=== PATIENT | male | born 1955 | race Caucasian/White ===

== ENCOUNTER 2019-12-01 04:54 | Inpatient (IN) | payer MEDICARE, SELFPAY, OTHER ==
[2019-12-01] VITALS (28 sets, daily range): BP systolic 77–143
[~2019-12-01] VITALS: Ht 172.7 cm; Wt 72.6 kg
--- NOTE | 2019-12-01 05:00 | NUR ---
Placed in room 6 . Placed on teletypesetter monitor, blood pressure machine and pulse oximeter. To gown for exam. Side rails up. Report given to JAGJIT DOMÍNGUEZ.
--- NOTE | 2019-12-01 05:01 | NUR ---
ER at bedside examining patient.
--- NOTE | 2019-12-01 05:02 | NUR ---
Patient brought to ED via ambulance ALS by squad 64 from home for report of SOB that began early this AM. Patient was recently diagnosed with PNA and discharged from [facility] on 11/21/19. Per report, Ativan 1 mg PO given at home from palliative nurse for patient agitation. On arrival to ED, patient was non-responsive and O2 sat 90% on 15L non-rebreather. CARMENCITA patient's mentation. Placed on electronic prepress technician, blood pressure machine and pulse oximeter.
--- NOTE | 2019-12-01 05:05 | NUR ---
MD Andujar and RT at bedside for patient evaluation and need for intubation.
--- NOTE | 2019-12-01 05:10 | NUR ---
Verbal order received from MD Andujar to administer Etomidate 20mg via IO.
--- NOTE | 2019-12-01 05:10 | NUR ---
15G 25mm IO placed to right lower leg.
--- NOTE | 2019-12-01 05:12 | NUR ---
Received verbal order to administer Succinylcholine 100mg via IO.
--- NOTE | 2019-12-01 05:13 | NUR ---
Vent settings: AC 14, VT 550, peep 5.
--- NOTE | 2019-12-01 05:13 | NUR ---
Patient intubated and placed on mechanical ventilator.
--- NOTE | 2019-12-01 05:14 | NUR ---
0.9 NS 1L started at this time.
--- NOTE | 2019-12-01 05:20 | NUR ---
O2 sat 98-100% at this time.
--- NOTE | 2019-12-01 05:30 | NUR ---
BP 73/31, HR 102, O2 sat 99%, Resp 14.
--- NOTE | 2019-12-01 05:35 | NUR ---
BP 61/35, HR 102, resp 14, O2 sat 98%.
--- NOTE | 2019-12-01 05:38 | NUR ---
Triple lumen central line placed by MD Andujar to right groin.
--- NOTE | 2019-12-01 05:40 | NUR ---
Levophed drip started at 2mcg/min. BP 86/53 (map 64), HR 100, resp 19.
[2019-12-01] MEDS ORDERED: NOREPINEPHRINE 4 MG/4 ML VIAL IV ONE ×3 (05:47→16:55)
--- NOTE | 2019-12-01 05:48 | NUR ---
BP 84/41 (map 62), HR 100.
--- NOTE | 2019-12-01 05:59 | NUR ---
BP 93/57 (map 71), HR 100. Patient currently on Levophed 4mcg/min.
[2019-12-01] MEDS ORDERED: NACL 0.9% 1,000 ML IV ONE (06:00)
[2019-12-01] MEDS ORDERED: PROPOFOL DRIP 100 ML IV ONE ×2 (06:00→06:16)
[2019-12-01] MEDS ORDERED: NOREPINEPHRINE BITARTRATE 4 MG in NS 246 ML IV ONE (06:00)
--- NOTE | 2019-12-01 06:07 | NUR ---
BP 96/65 (map 77), HR 102.
--- NOTE | 2019-12-01 06:10 | NUR ---
# 16 FR, 10ml ng catheter placed with use of sterile technique. Immediate return of 30 cc cathleen colored urine noted. Bedside drainage bag placed below level of bladder. Urine sample collected and sent to lab.
[2019-12-01] MEDS ORDERED: SPIRIVA INH (06:15)
[2019-12-01] MEDS ORDERED: POSA100T PO (06:15)
[2019-12-01] MEDS ORDERED: PRO40 PO (06:15)
[2019-12-01] MEDS ORDERED: [UNRECOGNIZED DRUG - CODE] PO (06:15)
[2019-12-01] MEDS ORDERED: ALBU2.5V7 INH (06:15)
[2019-12-01] MEDS ORDERED: MAGN400T10 PO (06:15)
[2019-12-01] MEDS ORDERED: SILD20TA PO (06:15)
[2019-12-01] MEDS ORDERED: LORA10TA7 PO (06:15)
[2019-12-01] MEDS ORDERED: MIRT15TA7 PO (06:15)
[2019-12-01] MEDS ORDERED: TROS20TA2 PO (06:15)
[2019-12-01] MEDS ORDERED: FLUT16SP16 NS (06:15)
[2019-12-01] MEDS ORDERED: CLAR500T PO (06:15)
--- NOTE | 2019-12-01 06:15 | NUR ---
Patient "bucking the vent", started on Propofol 5mcg/min.
--- NOTE | 2019-12-01 06:16 | NUR ---
Medication reconciliation completed with information provided by . Any prior medication reconciliation on file was reviewed and corrected.
--- NOTE | 2019-12-01 06:20 | NUR ---
Levophed increased to 6mcg/min and Propofol increased to 5mcg/min.
--- NOTE | 2019-12-01 06:20 | NUR ---
BP 71/43 (map 57), HR 98%, 02 sat 100%. RT at bedside for suction and ABG.
--- NOTE | 2019-12-01 06:30 | NUR ---
BP 96/58 (map 61), HR 97, O2 sat 100%.
--- NOTE | 2019-12-01 06:40 | NUR ---
0640 CHANGED VENT SETTINGS TO AC16, FIO2 50% PER JANOO.
[2019-12-01 06:42] LABS: BILIRUBIN,URINE 2+ (NEGATIVE); BLOOD, URINE 2+ (NEGATIVE); CLARITY/URINE TURBID (CLEAR); COLOR,URINE YELLOW (YELLOW); GLUCOSE,URINE TRACE (NEGATIVE); KETONES,URINE TRACE (NEGATIVE); LEUKOCYTE ESTERASE ,URINE NEGATIVE (NEGATIVE); NITRITE, URINE POSITIVE (NEGATIVE); PROTEIN URINE 1+ (NEGATIVE)
[2019-12-01 06:43] LABS: BASOPHILS # (AUTO) 0.1 K/uL (0.0-0.2); BASOPHILS % (AUTO) 2.1 % (0.0-2.0); EOSINOPHILS % (AUTO) 0.4 % (0.0-4.0); HEMATOCRIT 28.3 % (36-54); HEMOGLOBIN 9.4 g/dL (14.0-18.0); LYMPHOCYTES # (AUTO) 0.1 K/uL (1.0-5.5); LYMPHOCYTES % (AUTO) 2.1 % (20.5-51.5); MEAN CORPUSCULAR HEMOGLOBIN 34 pg (27-31); MEAN CORPUSCULAR HGB CONC 33 % (32-36); MEAN CORPUSCULAR VOLUME 101 fL (79.0-98.0); MONOCYTES # (AUTO) 0.4 K/uL (0.0-1.0); MONOCYTES % (AUTO) 8.5 % (1.7-9.3); NEUTROPHILS # (AUTO) 4.2 K/uL (1.8-7.7); NEUTROPHILS % (AUTO) 86.9 % (40.0-70.0); PLATELET COUNT (AUTO) 288 K/uL (130-430); RED BLOOD CELL COUNT(AUTO) 2.81 MIL/uL (4.2-6.2); RED CELL DISTRIBUTION WIDTH 19.7 % (9.0-15.0); WHITE BLOOD COUNT (AUTO) 4.8 K/uL (4.8-10.8)
--- NOTE | 2019-12-01 06:50 | NUR ---
BP 85/49 (map 66).
[2019-12-01 07:00] LABS: BACTERIA,URINE MODERATE /HPF (None Seen); URINE AMORPHOUS URATE 2+ /HPF (None Seen)
[2019-12-01] MEDS ORDERED: AZITHROMYCIN 500 MG in NS 250 ML IV ONE (07:00)
[2019-12-01] MEDS ORDERED: PIPERACILLIN/TAZO 3.375 GM in NS 50 ML IV ONE (07:00)
[2019-12-01 07:01] LABS: INR 1.5 (0.80-1.20)
[2019-12-01 07:02] LABS: ALANINE AMINOTRANSFERASE 19 U/L (12-78); ASPARTATE AMINOTRANSFERASE 48 U/L (10-37); C-REACTIVE PROTEIN QUANT 6.1 mg/dL (0-0.5); CHLORIDE 98 mmol/L (98-107); CREATININE 1.17 mg/dL (0.55-1.30); GLUCOSE 90 mg/dL (70-99); LACTATE DEHYDROGENASE 323 U/L (85-227); POTASSIUM 3.8 mmol/L (3.5-5.1); SODIUM SERUM 132 mmol/L (136-145); TOTAL BILIRUBIN 0.9 mg/dL (0.0-1.0); UREA NITROGEN, BLOOD 34 mg/dL (8-21)
--- NOTE | 2019-12-01 07:02 | NUR ---
BP 77/44 (map 56), HR 96, O2 sat 100%.
[2019-12-01 07:05] LABS: GFR AFRICAN AMERICAN 80 mL/min (>90)
[2019-12-01 07:08] LABS: ANION GAP < 3 (5-15); CALCIUM 6.7 mg/dL (8.4-11.0)
[2019-12-01 07:09] LABS: PROTHROMBIN TIME 14.6 SECS (9.5-12.5)
--- NOTE | 2019-12-01 07:20 | NUR ---
BP 73/43 (map 58), HR 97, O2 sat 100%.
--- NOTE | 2019-12-01 07:25 | NUR ---
Dr. Hudson, [facility] Doc, paged back to speak to Dr. Andujar.
--- NOTE | 2019-12-01 07:30 | NUR ---
Report given to CATRACHITA Arauz. All care endorsed.
[2019-12-01] MEDS ORDERED: ROCURONIUM BROMIDE 10 MG/ML (ZEMURON) IV ONE (08:01)
[2019-12-01] MEDS ORDERED: ETOMIDATE 20 MG/ 10 ML VIAL (AMIDATE) IVP ONE (08:01)
[2019-12-01] MEDS ORDERED: SUCCINYLCHOLINE CHLORIDE 20 MG/ML(QUELICIN) IVP ONE (08:01)
[2019-12-01] MEDS ORDERED: SILDENAFIL CITRATE 20 MG TABLET PO SCH (08:15)
[2019-12-01] MEDS ORDERED: DOCUSATE SODIUM 100 MG CAPSULE PO PRN (08:15)
[2019-12-01] MEDS ORDERED: MAGNESIUM SULFATE 50 ML IV PRN (08:15)
[2019-12-01] MEDS ORDERED: ONDANSETRON HCL 4 MG/2 ML VIAL IVP PRN (08:15)
[2019-12-01] MEDS ORDERED: MORPHINE 2 MG/ML INJ. SYRINGE IVP PRN ×2 (08:15)
[2019-12-01] MEDS ORDERED: MUPIROCIN 2% TOPICAL OINTMENT 22 GM NS PRN (08:15)
[2019-12-01] MEDS ORDERED: ACETAMINOPHEN 325 MG TABLET PO PRN (08:15)
[2019-12-01] MEDS ORDERED: LORazepam 2 MG/ML VIAL IVP PRN (08:15)
--- NOTE | 2019-12-01 08:16 | NUR ---
Patient will be admitted to care of DR. KELLEY. Admitted to ICU unit. Will go to room 2. Belongings list completed. Complete and up to date summary report printed. SBAR report to be given at bedside with opportunity for questions. Transfer to ICU via ACLS protocol. Licensed nurse present. IV present no signs or symptoms of infiltration.
[2019-12-01] MEDS ORDERED: AZITHROMYCIN 500 MG/VIAL (ZITHROMAX) IV ONE (08:18)
--- NOTE | 2019-12-01 08:30 | NUR ---
Opening note Received patient from ED and report from CATRACHITA Fournier. Patient intubated and Levophed gtt at 4mcg/min and Propofol at 5mcg/kg/min via central right femoral line. IO intact to right tibia. Hypotensive upon arrival, moving arms and turning head to name. NSR on monitor. Afebrile. Will continue to update on condition and titrate Levophed to effect.
--- NOTE | 2019-12-01 08:30 | NUR ---
0830 TRANSFERRED PT FROM ER 6 TO ICU 2 VIA VENT. NO RESPIRATORY DISTRESS NOTED. SPO2 100%, HR 58. WILL CONTINUE TO MONITOR PT.
--- NOTE | 2019-12-01 08:31 | NUR ---
SPOKE TO AMBAR GFIFORD, CALLED REGARDING PT ADMISSION STATUS.
[2019-12-01] MEDS ORDERED: POSACONAZOLE 300 MG PO SCH (09:00)
[2019-12-01] MEDS ORDERED: NON-FORMULARY MEDICATION (Trospium Chloride 20 MG) PO SCH (09:00)
--- NOTE | 2019-12-01 09:15 | NUR ---
Received call from Dr. Blackmon. Received orders for Servin insertion, PICC line, Decadron 6mg IVP daily, 10 units regular insulin IVP once, D50 IVP once. Addendum: 12/01/19 at 0993 by Fredy Page RN Note placed in error
--- NOTE | 2019-12-01 09:18 | NUR ---
Pagemarcos Blackmon with a consult at [phone]
--- NOTE | 2019-12-01 09:24 | NUR ---
Spoke to Dr. Blackmon and provide an sbar report. Received order for Albumin 5% 500 ML once IV.
[2019-12-01] MEDS ORDERED: ALBUMIN HUMAN 5% 500 ML IV ONE (09:30)
--- NOTE | 2019-12-01 09:30 | NUR ---
RT NOTES Per cxr result, dr's order, pushed ETT 3cm down, secured at 26cm. No adverse reactions noted. Bilateral b/s/chest rise noted.
[2019-12-01] MEDS ORDERED: NS 1000 ML IV.SOLN IV ONE (10:51)
[2019-12-01] MEDS: PIPERACILLIN/TAZO 3.375/DEX-IS 50 ML IV SCH ×2 (12:31→18:42)
[2019-12-01] MEDS: VASOPRESSIN 200 UNITS in D5W 90 ML IV PRN (13:46)
[2019-12-01] MEDS: NACL 0.9% 1,000 ML IV SCH (16:20)
[2019-12-01] MEDS: NOREPINEPHRINE BITARTRATE 4 MG in NS 246 ML IV PRN (16:36)
--- NOTE | 2019-12-01 19:15 | NUR ---
OPENING NOTE SBAR REPORT RECEIVED FROM ZOYA RN AND ALVINO RN. CARE ASSUMED. PT LAYING IN BED. PT SEDATED. PT INTUBATED. ETT SIZE 7.5 LIP LINE 24. VENT SETTINGS AC 16 TIDAL VOLUME 550, FiO2 50% AND PEEP 5. PT TOLERATING VENT SETTING WELL. PT SINUS RHYTHM ON MONITOR. PT HAS RIGHT FEMORAL TRIPLE LUMEN CENTRAL LINE RUNNING LEVOPHED @ 12 MCG/MIN, VASOPRESSIN @ 0.04 UNITS/MIN, PROPOFOL @ 10 MCG/KG/MIN AND NORMAL SALINE @ 120 ML/HR. RADIAL AND PEDAL PULSES NORMAL. NON PITTING EDEMA TO BILATERAL LOWER EXTREMITIES. NG TUBE TO RIGHT NARE IN PLACE. NG TUBE CLAMPED. ABDOMEN SOFT NON DISTENDED. ONEILL CATHETER IN PLACE DRAINING TO GRAVITY. URINE DIONISIO. SKIN INTACT. CALL LIGHT WITHIN REACH. SAFETY PRECAUTIONS IN PLACE. BED LOCKED IN LOWEST POSITION. WILL CONTINUE TO MONITOR.
--- NOTE | 2019-12-01 19:31 | NUR ---
Closing note: Report given to Ellie. Provided plan of care and 1600 assessment results.
--- NOTE | 2019-12-01 23:30 | NUR ---
PAGED DR. WHITE FOR ORDERS DIALED: [phone] SPOKE TO: AUTOMATED EXCHANGE
--- NOTE | 2019-12-01 23:46 | NUR ---
PAGED DR. WHITE FOR ORDERS DIALED: [phone] SPOKE TO: AUTOMATED EXCHANG
[2019-12-02] VITALS (33 sets, daily range): BP systolic 72–108
[2019-12-02] MEDS: NACL 0.9% 1,000 ML IV SCH ×3 (00:05→20:45)
[2019-12-02] MEDS: PIPERACILLIN/TAZO 3.375/DEX-IS 50 ML IV SCH ×4 (00:10→18:34)
[2019-12-02] MEDS: NOREPINEPHRINE BITARTRATE 4 MG in NS 246 ML IV PRN ×6 (00:13→13:56)
--- NOTE | 2019-12-02 00:15 | NUR ---
PAGED DR. WHITE FOR ORDERS DIALED: [phone] SPOKE TO: AUTOMATED EXCHANG
[2019-12-02] MEDS: PROPOFOL DRIP 100 ML IV PRN ×2 (01:55→08:38)
--- NOTE | 2019-12-02 07:15 | NUR ---
PT. FOUND WITH ETT POSITIONED ON RIGHT SIDE OF MOUTH. UNABLE TO REPOSITION TO OTHER SIDE, TUBE IS WEDGED BEHIND TEETH. POSITION DOES NOT AFFECT RETURN VOLUMES, NO SIGNS OF KINKING, WILL CONTINUE TO MONITOR.
--- NOTE | 2019-12-02 07:25 | NUR ---
CLOSING NOTE PT LAYING IN BED. PT HYPOTENSIVE. LEVOPHED @ 30 MCG/MIN AND VASOPRESSIN @ 0.07 UNITS/MIN RUNNING THROUGH RIGHT FEMORAL TRIPLE LUMEN CENTRAL LINE. UNABLE TO REACH ROUGH PATCHER DURING EMERGENCY MEDICAL TECHNICIAN/DRIVER. SBAR REPORT GIVEN TO ZOYA DOMÍNGUEZ AND ALVINO DOMÍNGUEZ. CARE ENDORSED.
--- NOTE | 2019-12-02 07:30 | NUR ---
Opening note: SBAR report received from Ellie DOMÍNGUEZ. Endorsed drip rates as charted and possibility of central line leak. Going in to room to assess patient now.
[2019-12-02 07:33] LABS: BASOPHILS # (AUTO) 0.2 K/uL (0.0-0.2); BASOPHILS % (AUTO) 4.6 % (0.0-2.0); EOSINOPHILS # (AUTO) 0.1 K/uL (0.0-0.4); EOSINOPHILS % (AUTO) 1.7 % (0.0-4.0); HEMATOCRIT 31.1 % (36-54); HEMOGLOBIN 10.2 g/dL (14.0-18.0); LYMPHOCYTES # (AUTO) 0.1 K/uL (1.0-5.5); LYMPHOCYTES % (AUTO) 3.1 % (20.5-51.5); MEAN CORPUSCULAR HEMOGLOBIN 33 pg (27-31); MEAN CORPUSCULAR HGB CONC 33 % (32-36); MEAN CORPUSCULAR VOLUME 101 fL (79.0-98.0); MONOCYTES # (AUTO) 0.2 K/uL (0.0-1.0); MONOCYTES % (AUTO) 6.8 % (1.7-9.3); NEUTROPHILS % (AUTO) 83.8 % (40.0-70.0); PLATELET COUNT (AUTO) 319 K/uL (130-430); RED BLOOD CELL COUNT(AUTO) 3.07 MIL/uL (4.2-6.2); RED CELL DISTRIBUTION WIDTH 20.4 % (9.0-15.0); WHITE BLOOD COUNT (AUTO) 3.5 K/uL (4.8-10.8)
[2019-12-02 07:51] LABS: ALBUMIN 1.5 g/dL (3.4-4.8); CALCIUM 7.3 mg/dL (8.4-11.0); CREATININE 1.09 mg/dL (0.55-1.30); POTASSIUM 3.4 mmol/L (3.5-5.1)
--- NOTE | 2019-12-02 08:00 | NUR ---
Central line dressing changed. Site does not appear to be leaking at puncture site. New dressing intact.
[2019-12-02] MEDS ORDERED: NOREPINEPHRINE 4 MG/4 ML VIAL IV ONE (08:34)
--- NOTE | 2019-12-02 08:45 | NUR ---
Nutrition Update Vick scale 10 noted. Pt admitted for Acute Respiratory Failure Diet: No Diet Order BMI: 24.3 kg/m2 RD to follow per nutrition care standard
[2019-12-02] MEDS: CALCIUM CARBONATE 500 MG/ TAB.CHEW PO SCH (09:44)
[2019-12-02] MEDS ORDERED: POTASSIUM CHLORIDE 20 MEQ/PKT PACKET PO ONE (11:00)
[2019-12-02] MEDS: MIDAZOLAM HCL IN 0.9 % NACL/PF 50 ML IV PRN (13:45)
--- NOTE | 2019-12-02 13:45 | NUR ---
Dr Blackmon here to see patient. Reported continued hypotension and IV vasopressors current rates. Ordered Neosynephrine PRN to keep SBP>90 and changed Propofol to Versed for sedation.
--- NOTE | 2019-12-02 13:45 | NUR ---
Called Dr. Young with a consult, spoke with Tami from the exchange
[2019-12-02] MEDS: PHENYLEPHRINE HCL 30 MG in NS 247 ML IV PRN ×3 (13:47→21:29)
[2019-12-02] MEDS: HYDROCORTISONE SOD SUCC 100 MG/2 ML VIAL IVP SCH ×2 (13:57→21:15)
--- NOTE | 2019-12-02 15:15 | NUR ---
Dr Blackmon here to see patient. Ordered surgical consult from available surgeon to assess US of abdomen results. Okayed quadruple strength Levophed.
--- NOTE | 2019-12-02 15:30 | NUR ---
Dr Doss called to get report on patient. No new orders at this time.
--- NOTE | 2019-12-02 15:56 | NUR ---
Called Dr. Carlson with a consult. Doctor Aldo is out of town until Thursday- November
--- NOTE | 2019-12-02 16:09 | NUR ---
Dietitian Recommendations *Recommend TF Vital High Protein at goal rate of 50 ml/hr via NGT if/when medically applicable to promote repletion but avoid overfeeding pt. Initiate TF at 20ml/hr at advance by 10 ml/hr Q6H until goal rate is reached. - Provides: 1200 kcal, 105g protein, 1003 ml H2O -- meeting 55% of lower end of estimated calorie needs and 95% of lower end of estimated protein needs. *Consider PPN/TPN via central line if EN regimen not medically feasible. Please see Nutrition Assessment for details. EP,RD
--- NOTE | 2019-12-02 16:45 | NUR ---
Dr Young called to get report on patient. No new orders at this time.
[2019-12-02] MEDS: VASOPRESSIN 200 UNITS in D5W 90 ML IV PRN (17:32)
--- NOTE | 2019-12-02 19:30 | NUR ---
Opening note: Received SBAR report from off coming RN for continuity of care.
--- NOTE | 2019-12-02 19:33 | NUR ---
Closing note: Report given to Caesar. SBAR report as well as recent vital signs and current gtts endorsed.
--- NOTE | 2019-12-02 20:00 | NUR ---
Echocardiogram done at bedside. Pt did not exhibit any signs or symptoms of distress during procedure. Dr. Adams aware of results.
--- NOTE | 2019-12-02 20:30 | NUR ---
Pt resting comfortably in bed without any signs or symptoms of distress noted. Pt intubated with ETT size 7.5, AC mode 16, FiO2 40%, TV 550, and PEEP 5. Pt was provided with PO care and suctioning. NG tube in place to the R) nare and clamped. R) femoral CVC in place with the dressing clean and intact. CVC patent and infusing: NS continuously @ 120 ml/hr, Levophed gtt @ 30 mcg/min, Vasopressin gtt @ 0.07 units/min, Neosynephrine gtt @ 260 mcg/min, Versed gtt @ 2 mg/hr. Servin in place draining to gravity with a small amount of cathleen urine draining. Pt repositioned for comfort, pillows placed under arms and feet. Will continue to monitor and assess pt.
[2019-12-03] VITALS (30 sets, daily range): BP systolic 74–115
[2019-12-03] MEDS: PHENYLEPHRINE HCL 30 MG in NS 247 ML IV PRN ×6 (00:26→11:22)
[2019-12-03] MEDS: NACL 0.9% 1,000 ML IV SCH ×3 (00:45→16:48)
[2019-12-03] MEDS: HYDROCORTISONE SOD SUCC 100 MG/2 ML VIAL IVP SCH ×3 (05:20→22:33)
[2019-12-03] MEDS: PIPERACILLIN/TAZO 3.375/DEX-IS 50 ML IV SCH ×2 (05:20)
[2019-12-03] MEDS ORDERED: PHENYLEPHRINE HCL 10 MG/ML VIAL (NEOSYNEPHRINE) ONE ×3 (05:42→22:17)
--- NOTE | 2019-12-03 07:30 | NUR ---
Received patient and endorsed report from [facility] shift nurse. Patient in no acute distress. Side rails x 3 up. Call light with in reach.
--- NOTE | 2019-12-03 07:34 | NUR ---
Closing note: Endorsed SBAR report to oncoming RN for continuity of care.
[2019-12-03 08:09] LABS: HEMATOCRIT 33.7 % (36-54); HEMOGLOBIN 10.8 g/dL (14.0-18.0); MEAN CORPUSCULAR HEMOGLOBIN 32 pg (27-31); MEAN CORPUSCULAR HGB CONC 32 % (32-36); MEAN CORPUSCULAR VOLUME 101 fL (79.0-98.0); PLATELET COUNT (AUTO) 277 K/uL (130-430); RED BLOOD CELL COUNT(AUTO) 3.34 MIL/uL (4.2-6.2); RED CELL DISTRIBUTION WIDTH 20.1 % (9.0-15.0); WHITE BLOOD COUNT (AUTO) 3.8 K/uL (4.8-10.8)
--- NOTE | 2019-12-03 08:30 | NUR ---
MD Doss at bedside.
[2019-12-03] MEDS ORDERED: FUROSEMIDE 40 MG/4 ML VIAL IVP SCH (09:00)
--- NOTE | 2019-12-03 09:00 | NUR ---
MD Blackmon at bedside.
[2019-12-03 09:06] LABS: BASOPHILS % (MANUAL) 0 % (0-2); EOSINOPHILS % (MANUAL) 0 % (0-7); LYMPHOCYTES % (MANUAL) 12 % (20-46); MONOCYTES % (MANUAL) 8 % (0-11)
[2019-12-03 09:06] LABS: CALCIUM 7.2 mg/dL (8.4-11.0); CREATININE 1.08 mg/dL (0.55-1.30); POTASSIUM 3.5 mmol/L (3.5-5.1)
[2019-12-03] MEDS: ENOXAPARIN SODIUM 40 MG/0.4 ML SYRINGE SUBCUT SCH (09:35)
[2019-12-03] MEDS: CALCIUM CARBONATE 500 MG/ TAB.CHEW PO SCH (09:35)
[2019-12-03] MEDS ORDERED: MEROPENEM 1 GM in NS 100 ML IV ONE (10:45)
[2019-12-03] MEDS: VANCOMYCIN HCL 1 GM/NS PREMIX 250 ML IV SCH ×2 (10:55→22:55)
[2019-12-03] MEDS: NOREPINEPHRINE BITARTRATE 16 MG in NS 246 ML IV PRN ×2 (10:59→20:06)
--- NOTE | 2019-12-03 11:12 | NUR ---
MD Bowers at bedside.
--- NOTE | 2019-12-03 14:00 | NUR ---
Received telephone consent from patient's with second nurse verified for cat scan of the abdomen and chest with contrast.
[2019-12-03] MEDS: PHENYLEPHRINE HCL 30 MG in NS 247 ML IV SCH ×3 (15:49→22:37)
[2019-12-03] MEDS ORDERED: IOHEXOL 0 ML IV ONE (16:14)
--- NOTE | 2019-12-03 16:30 | NUR ---
Unable to perform cat scan of the abdomen and chest due to blood pressure decreasing to 61/40. Rescheduled for tomorrow.
--- NOTE | 2019-12-03 17:30 | NUR ---
talked to patient over Ipad at bedside.
[2019-12-03] MEDS ORDERED: HEPARIN SODIUM,PORCINE 5000 UNITS/ML VIAL ONE (17:32)
--- NOTE | 2019-12-03 19:20 | NUR ---
Endorsed report and patient to NOC shift nurse. In no acute distress.Side rails x 3 up. Call light with in reach.
--- NOTE | 2019-12-03 19:35 | NUR ---
Opening note: Received SBAR report from off coming RN for continuity of care.
--- NOTE | 2019-12-03 20:00 | NUR ---
Pt resting in bed with no signs or symptoms of distress. Pt intubated, ETT size 7.5, ventilator on AC mode 16, FiO2 40%, TV 550, PEEP 5. Pt was suctioned and provided with PO care. NG tube to R) nare and clamped. Servin catheter in place and draining to gravity. R) femoral CVC in place with NS infusing continuously @ 120 ml/hr, Levophed gtt @ 30 mcg.min, Vasopressin gtt @ 0.07 units/min, Neosynephrine gtt @ 140 mcg/min, Versed gtt @ 2mg/hr. Pt repositioned for comfort, heels and arms floated on pillows to prevent skin breakdown. Will continue to monitor and assess.
[2019-12-03] MEDS: MEROPENEM 1 GM in NS 100 ML IV SCH (22:33)
[2019-12-03] MEDS: VASOPRESSIN 200 UNITS in D5W 90 ML IV PRN (22:57)
[2019-12-04] VITALS (37 sets, daily range): BP systolic 74–116
[2019-12-04] MEDS: ALBUMIN HUMAN 25% 100 ML IV SCH ×2 (00:05→20:30)
[2019-12-04] MEDS ORDERED: PHENYLEPHRINE HCL 10 MG/ML VIAL (NEOSYNEPHRINE) ONE ×3 (00:26→05:52)
[2019-12-04] MEDS: NACL 0.9% 1,000 ML IV SCH ×4 (01:43→21:50)
[2019-12-04] MEDS: PHENYLEPHRINE HCL 30 MG in NS 247 ML IV SCH ×3 (04:30→19:13)
[2019-12-04] MEDS: MIDAZOLAM HCL IN 0.9 % NACL/PF 50 ML IV PRN (05:00)
[2019-12-04] MEDS: MEROPENEM 1 GM in NS 100 ML IV SCH ×3 (05:30→21:47)
[2019-12-04] MEDS: HYDROCORTISONE SOD SUCC 100 MG/2 ML VIAL IVP SCH ×3 (05:30→21:49)
--- NOTE | 2019-12-04 07:20 | NUR ---
Received patient and report from [facility] shift nurse. Side rails x 3 up. Call light with in reach.
--- NOTE | 2019-12-04 07:23 | NUR ---
Closing note: Endorsed SBAR report to oncoming RN for continuity of care.
[2019-12-04] MEDS: ENOXAPARIN SODIUM 40 MG/0.4 ML SYRINGE SUBCUT SCH (08:07)
[2019-12-04] MEDS: CALCIUM CARBONATE 500 MG/ TAB.CHEW PO SCH (08:08)
--- NOTE | 2019-12-04 08:30 | NUR ---
MD Cisco Bowers at bedside.
--- NOTE | 2019-12-04 08:45 | NUR ---
Informed MD Cisco Bowers increase of generalized pitting edema with weeping, low urine output, and cool bilateral lower extremities with toes bluish skin color.
[2019-12-04 08:59] LABS: BASOPHILS % (AUTO) 0.2 % (0.0-2.0); EOSINOPHILS % (AUTO) 0.7 % (0.0-4.0); HEMATOCRIT 33.4 % (36-54); HEMOGLOBIN 10.6 g/dL (14.0-18.0); LYMPHOCYTES # (AUTO) 0.2 K/uL (1.0-5.5); LYMPHOCYTES % (AUTO) 6.9 % (20.5-51.5); MEAN CORPUSCULAR HEMOGLOBIN 33 pg (27-31); MEAN CORPUSCULAR HGB CONC 32 % (32-36); MEAN CORPUSCULAR VOLUME 104 fL (79.0-98.0); MONOCYTES # (AUTO) 0.4 K/uL (0.0-1.0); MONOCYTES % (AUTO) 11.3 % (1.7-9.3); NEUTROPHILS # (AUTO) 2.7 K/uL (1.8-7.7); NEUTROPHILS % (AUTO) 80.9 % (40.0-70.0); PLATELET COUNT (AUTO) 308 K/uL (130-430); RED BLOOD CELL COUNT(AUTO) 3.23 MIL/uL (4.2-6.2); RED CELL DISTRIBUTION WIDTH 20.4 % (9.0-15.0); WHITE BLOOD COUNT (AUTO) 3.3 K/uL (4.8-10.8)
[2019-12-04 09:09] LABS: CALCIUM 7.3 mg/dL (8.4-11.0); CREATININE 1.26 mg/dL (0.55-1.30); POTASSIUM 3.7 mmol/L (3.5-5.1)
[2019-12-04] MEDS ORDERED: NITROGLYCERIN 1 INCH (GM) OINT. TP ONE (09:45)
--- NOTE | 2019-12-04 09:45 | NUR ---
New consult paged to Dr. Garcia, Dr. Bustos allocations clerk, spoke with exchange.
--- NOTE | 2019-12-04 10:30 | NUR ---
MD Blackmon at bedside. New order to make ct scans scheduled today with out contrast due to worsening kidney function. Orders adjusted.
[2019-12-04] MEDS: VANCOMYCIN HCL 1 GM/NS PREMIX 250 ML IV SCH ×2 (11:29→22:53)
--- NOTE | 2019-12-04 13:05 | NUR ---
Left unit to CT scan via gurney with portable telemetry and 02 saturation monitor with assistance of radiologist techs and RT. Addendum: 12/04/19 at 1945 by Alee Klein RN NOTE ERROR: Transportation via bed not gurney.
--- NOTE | 2019-12-04 13:25 | NUR ---
[address] BAGGED PT VIA AMBU BAG 15LPM. NO RESPIRATORY DISTRESS NOTED.
--- NOTE | 2019-12-04 13:40 | NUR ---
Arrived back to unit from CT scan via bed with portable telemetry and 02 saturation monitor with assistance of radiologist techs and RT.
--- NOTE | 2019-12-04 15:02 | NUR ---
Tube feeding started with glucerna at 10 ml an hour. Patient tolerating WNL. Placement of NGT verified.
--- NOTE | 2019-12-04 15:30 | NUR ---
MD Bustos at bedside.
[2019-12-04] MEDS: NOREPINEPHRINE BITARTRATE 16 MG in NS 246 ML IV PRN (19:02)
--- NOTE | 2019-12-04 19:02 | NUR ---
Tube feeding increased with glucerna at 20 ml an hour. Patient tolerating WNL.
[2019-12-04] MEDS ORDERED: ALBUMIN HUMAN 25% 0 ML IV ONE (19:08)
[2019-12-04] MEDS ORDERED: ALBUMIN HUMAN 25% 200 ML IV ONE (19:12)
[2019-12-04] MEDS ORDERED: ALBUMIN HUMAN 25% 100 ML IV ONE (19:15)
--- NOTE | 2019-12-04 19:20 | NUR ---
Endorsed patient and report to NOC shift nurse. Side rails x 3 up. Call light with in reach.
--- NOTE | 2019-12-04 19:30 | NUR ---
Opening note: Received SBAR report from off coming RN for continuity of care. Pt resting in bed without any signs or symptoms of distress noted. Pt lethargic, intubated with ETT size 7.5, lip line 26, vent on AC mode 16, FiO2 40%, TV 550, and PEEP 5. Provided suctioning and oral care. NG tube in place to R) nare with Glucerna 1.5 infusing @ 20 ml/hr. Servin catheter in place and draining to gravity,minimal urine output noted. R) femoral CVC in place with NS infusing continuously @ 125 ml/hr, Neosynephrine gtt infusing @ 20 mcg/min, Levophed gtt @ 30 mcg/min, Vasopressin gtt @ 0.07 units/min, and versed gtt @ 20mg/hr. 3+ pitting edema to BUE and weeping, 2+ pitting edema to BLE noted with minimal weeping. Pt repositioned for comfort and skin breakdown prevention. Will continue to monitor and assess.
[2019-12-05] VITALS (35 sets, daily range): BP systolic 80–125
[2019-12-05] MEDS: ALBUMIN HUMAN 25% 100 ML IV SCH (04:00)
[2019-12-05] MEDS: MEROPENEM 1 GM in NS 100 ML IV SCH ×3 (05:23→21:36)
[2019-12-05] MEDS: HYDROCORTISONE SOD SUCC 100 MG/2 ML VIAL IVP SCH ×3 (05:23→21:33)
[2019-12-05] MEDS: NOREPINEPHRINE BITARTRATE 16 MG in NS 246 ML IV PRN ×3 (05:25→21:35)
[2019-12-05 07:05] LABS: ALBUMIN 2.5 g/dL (3.4-4.8); CALCIUM 7.1 mg/dL (8.4-11.0); CREATININE 1.43 mg/dL (0.55-1.30); POTASSIUM 3.4 mmol/L (3.5-5.1); TOTAL BILIRUBIN 3.1 mg/dL (0.0-1.0)
--- NOTE | 2019-12-05 07:20 | NUR ---
Report received from CATRACHITA Urias for continuation of care. Patient is resting in bed at this time. No acute signs or symptoms of distress noted.
--- NOTE | 2019-12-05 07:22 | NUR ---
Closing note: Endorsed SBAR report to on coming RN for continuity of care.
[2019-12-05] MEDS: NACL 0.9% 1,000 ML IV SCH ×2 (08:10→16:53)
--- NOTE | 2019-12-05 08:10 | NUR ---
Dr. Vasquez in to see patient.
[2019-12-05] MEDS: CALCIUM CARBONATE 500 MG/ TAB.CHEW PO SCH (08:12)
[2019-12-05] MEDS: MIDAZOLAM HCL IN 0.9 % NACL/PF 50 ML IV PRN (08:12)
[2019-12-05] MEDS: NITROGLYCERIN 1 INCH (GM) OINT. TP SCH (08:13)
[2019-12-05] MEDS: ENOXAPARIN SODIUM 40 MG/0.4 ML SYRINGE SUBCUT SCH (08:13)
[2019-12-05] MEDS: POTASSIUM CHLORIDE 20 MEQ TAB.PRT.SR PO PRN (08:15)
[2019-12-05 08:27] LABS: HEMATOCRIT 25.2 % (36-54); HEMOGLOBIN 7.9 g/dL (14.0-18.0); MEAN CORPUSCULAR HEMOGLOBIN 32 pg (27-31); MEAN CORPUSCULAR HGB CONC 32 % (32-36); MEAN CORPUSCULAR VOLUME 103 fL (79.0-98.0); PLATELET COUNT (AUTO) 225 K/uL (130-430); RED BLOOD CELL COUNT(AUTO) 2.45 MIL/uL (4.2-6.2); RED CELL DISTRIBUTION WIDTH 20.6 % (9.0-15.0); WHITE BLOOD COUNT (AUTO) 2.4 K/uL (4.8-10.8)
--- NOTE | 2019-12-05 08:40 | NUR ---
RT reported abnormal ABG to Dr. Vasquez, RT adjusted vent to a rate of [address] Vasquez.
[2019-12-05] MEDS ORDERED: FUROSEMIDE 40 MG/4 ML VIAL IVP ONE (08:45)
--- NOTE | 2019-12-05 09:30 | NUR ---
Dr. Bowers at bedside to see patient.
--- NOTE | 2019-12-05 09:40 | NUR ---
Per radiology, PMI has to be called for HIDA scan. wood boat builder supervisor notified.
--- NOTE | 2019-12-05 10:29 | NUR ---
DC PLANNING Called Ashley Sharri, ph [phone], CM assigned is Belinda. Left msg for Belinda, if needs information will call me, left my direct #.
[2019-12-05 11:30] LABS: BAND % (MANUAL) 3 % (0-6); BASOPHILS % (MANUAL) 0 % (0-2); EOSINOPHILS % (MANUAL) 0 % (0-7); LYMPHOCYTES % (MANUAL) 7 % (20-46); MONOCYTES % (MANUAL) 10 % (0-11)
--- NOTE | 2019-12-05 13:18 | NUR ---
Nutrition F/U Admitting Diagnosis: Acute Respiratory Failure Medical History Comment: PMH: SOB, Unknown type lymphoma w/ pulmonary HTN, severe PNA, COPD, GERD, anxiety Pt also found w/ s/p intubation 11/30, septic shock, severe malnutrition w/ low albumin, complicated UTI, and COVID-19 PUI per MD note and EMR. Pertinent Medical Information 12/04: US findings not consistent with cholecystitis no evidence of wall thickening, pericholecystic fluid KUB today did not demonstrate free air or gross signs of obstruction. CT scan reviewed no gross evidence of abnormalities will f/u on radiology read. +Anasarca Subjective Information: Pt remains in ICU and RD s/w pt's primary RN who reported that pt is now on versed drip, EN infusing at goal of 40ml/hr, tolerating well. Current EN regimen provides: 1152 kcal, 58gm protein and 1773ml fluids daily which meets 66% of estimated calorie needs and 53% of estimated protein needs. Pt is not yet meeting adequate nutrition w/ current EN regimen and will benefit from an increase in EN infusion rate to meet at least 80% of estimated needs. Current Diet Order/Nutrition Support: Glucerna 1.2 at 40m/lhr (goal rate), Free Water Flush at 250ml Q6H via OGT Pertinent Medication: Lovenox, norepinephrine, Solu-cortef, Tums, K-Dur, Propofol, Colace Pertinent Labs: 12/04 Na 142 WNL, K 3.4L, BUN 48H (trending up), CRE 1.43 H (trending up), BG 157H (trending up), COVID-19 PCR Negative 11/30 Skin Integrity Comment: Vick scale 11. Per EMR, skin tear at medial sacrum and left buttocks and 3+ pitting edema on bilateral ankle and bilateral arm noted. NEW Estimated Energy Expenditure (kcals/day) 1753 kcal/day (PSU for critical illness on vent support) NEW Estimated Protein Required (g/day) 73-110g/day (1-1.5 gm/kg CBW for elevated renal lab values and septic shock) Estimated Fluid Required (l/day) 6254-1405 ml/day (1 ml/kcal/day for normal maintenance) Problem/Etiology/Signs/Symptoms Inadequate protein-energy intake related to increased nutritional demands as evidenced by septic shock, pt s/p intubation 11/30, and pt not having diet order. (*no longer applicable, pt w/ EN support ) Inadequate EN intake r/t current EN infusion rate AEB EN intake meets <60% of estimated calorie and protien needs. (*new) Expected Outcomes/Goals Monitor EN tolerance and intake with goal of pt meeting at least 80% of estimated nutritional needs, labs trending WNL, normal GI function, skin integrity, and wt maintenance. Dietitian Recommendations *Recommend Glucerna 1.5 at 45ml/hr (goal rate), Free Water Flush 150ml Q6H via OGT Provides: 1620 kcal, 89gm protein and 1420ml free water daily. Meets: 92% of estimated calorie needs and 81% of upper end of estimated protein needs. Follow Up High Risk: F/U in 2-3days
[2019-12-05] MEDS: VANCOMYCIN HCL 750 MG in NS 250 ML IV SCH ×2 (13:39→23:41)
--- NOTE | 2019-12-05 13:47 | NUR ---
Dietitian Recommendations *Recommend Glucerna 1.5 at 45ml/hr (goal rate), Free Water Flush 150ml Q6H via OGT Provides: 1620 kcal, 89gm protein and 1420ml free water daily. Meets: 92% of estimated calorie needs and 81% of upper end of estimated protein needs. Please see Nutrition F/U notes for details. LONG-TERM, RD
--- NOTE | 2019-12-05 14:14 | NUR ---
Sodium Bicarb not verified. Spoke with Efraín in pharmacy.
[2019-12-05] MEDS: SODIUM BICARBONATE 8.4% JECT 50 MEQ/50 ML SYRINGE IVP SCH ×4 (14:18→16:53)
--- NOTE | 2019-12-05 14:58 | NUR ---
CONSULT JESSEE FLORES MD: DR. FRANCIS (DR. PAGAN STAMP PAD MAKER) DIALED: [phone] SPOKE TO: ONEYDA ORDERED BY: DR. BONILLA
--- NOTE | 2019-12-05 19:15 | NUR ---
PM SHIFT ASSESSMENT Pt is sedated, on the vent. RR even and unlabored. SR noted on monitor. IVF infusing. Servin catheter in place and draining to gravity. Safety precautions in place, call light within reach. Will continue to monitor.
--- NOTE | 2019-12-05 19:20 | NUR ---
Report given to CATRACHITA Hutchinson for continuation of care. No signs or symptoms of distress noted.
[2019-12-05] MEDS: PHENYLEPHRINE HCL 30 MG in NS 247 ML IV SCH (21:34)
[2019-12-06] VITALS (34 sets, daily range): BP systolic 87–125
[2019-12-06] MEDS: VASOPRESSIN 200 UNITS in D5W 90 ML IV PRN (01:04)
[2019-12-06] MEDS: NACL 0.9% 1,000 ML IV SCH ×2 (03:45→15:17)
[2019-12-06] MEDS: HYDROCORTISONE SOD SUCC 100 MG/2 ML VIAL IVP SCH ×3 (06:03→22:17)
[2019-12-06] MEDS: MEROPENEM 1 GM in NS 100 ML IV SCH ×3 (06:04→22:14)
[2019-12-06 06:18] LABS: BASOPHILS % (AUTO) 1.4 % (0.0-2.0); EOSINOPHILS % (AUTO) 1.1 % (0.0-4.0); HEMATOCRIT 24.7 % (36-54); HEMOGLOBIN 8.1 g/dL (14.0-18.0); LYMPHOCYTES # (AUTO) 0.3 K/uL (1.0-5.5); LYMPHOCYTES % (AUTO) 12.9 % (20.5-51.5); MEAN CORPUSCULAR HEMOGLOBIN 33 pg (27-31); MEAN CORPUSCULAR HGB CONC 33 % (32-36); MEAN CORPUSCULAR VOLUME 100 fL (79.0-98.0); MONOCYTES # (AUTO) 0.2 K/uL (0.0-1.0); MONOCYTES % (AUTO) 7.4 % (1.7-9.3); NEUTROPHILS # (AUTO) 1.6 K/uL (1.8-7.7); NEUTROPHILS % (AUTO) 77.2 % (40.0-70.0); PLATELET COUNT (AUTO) 182 K/uL (130-430); RED BLOOD CELL COUNT(AUTO) 2.47 MIL/uL (4.2-6.2); WHITE BLOOD COUNT (AUTO) 2.1 K/uL (4.8-10.8)
[2019-12-06 06:23] LABS: CREATININE 1.47 mg/dL (0.55-1.30); POTASSIUM 3.2 mmol/L (3.5-5.1)
--- NOTE | 2019-12-06 07:00 | NUR ---
Report received from CATRACHITA Hutchinson for continuation of care. Patient is resting in bed. No signs or symptoms of distress noted.
--- NOTE | 2019-12-06 07:10 | NUR ---
ENDORSEMENT Pt care endorsed to CATRACHITA Edmondson using nursing SBAR.
[2019-12-06] MEDS: POTASSIUM CHLORIDE 20 MEQ TAB.PRT.SR PO PRN (08:20)
[2019-12-06] MEDS: CALCIUM CARBONATE 500 MG/ TAB.CHEW PO SCH (08:20)
[2019-12-06] MEDS: ENOXAPARIN SODIUM 40 MG/0.4 ML SYRINGE SUBCUT SCH (08:21)
[2019-12-06] MEDS: NITROGLYCERIN 1 INCH (GM) OINT. TP SCH (08:21)
--- NOTE | 2019-12-06 09:00 | NUR ---
Feeding stopped for HIDA scan per order.
--- NOTE | 2019-12-06 09:24 | NUR ---
CONSULT ID CONSULTING MD: DR. GEORGE DIALED: [phone] SPOKE TO: PONCHO ORDERED BY: DR. PEACOCK
--- NOTE | 2019-12-06 11:15 | NUR ---
DC PLANNING Received call from Belinda URIBE @ [place], updated on pt status. Authorizing yesterday & today, will fax authorization later today.
[2019-12-06] MEDS: VANCOMYCIN HCL 750 MG in NS 250 ML IV SCH (11:58)
--- NOTE | 2019-12-06 12:00 | NUR ---
HIDA scan nail technician teacher at bedside to perform scan.
--- NOTE | 2019-12-06 14:48 | NUR ---
[facility] dyno technician completed scan.
--- NOTE | 2019-12-06 14:53 | NUR ---
Meropenem not mixing. Pharmacy notified, spoke with
--- NOTE | 2019-12-06 17:13 | NUR ---
Called patient's , Oneida at and gave her an update on patient's condition.
--- NOTE | 2019-12-06 17:23 | NUR ---
Spoke with Josue in pharmacy about micafungin needing to be verified. He verbalized understanding.
[2019-12-06] MEDS: MIDAZOLAM HCL IN 0.9 % NACL/PF 50 ML IV PRN (17:29)
[2019-12-06] MEDS: NOREPINEPHRINE BITARTRATE 16 MG in NS 246 ML IV PRN (17:31)
[2019-12-06] MEDS: MICAFUNGIN SODIUM 100 MG in NS 100 ML IV SCH (17:31)
--- NOTE | 2019-12-06 19:10 | NUR ---
Report given to CATRACHITA Rg for continuation libertarian.
--- NOTE | 2019-12-06 19:30 | NUR ---
Opening note received patient after report from dayshift nurse. Vent to ETT in place and tolerating settings. Assessment completed. repositioned for comfort. IV drips infusing to central line patent. will continue to monitor as per unit protocol.
[2019-12-06] MEDS ORDERED: KCL 20 mEq in 100 mL (PREMIX) 200 ML IV ONE (20:16)
[2019-12-06] MEDS: KCL 20 mEq in 100 mL (PREMIX) 100 ML IV SCH ×2 (20:19→22:14)
[2019-12-07] VITALS (31 sets, daily range): BP systolic 83–122
--- NOTE | 2019-12-07 00:20 | NUR ---
Assessment completed, patient repositioned for comfort. No signs of distress noted.
[2019-12-07] MEDS: HYDROCORTISONE SOD SUCC 100 MG/2 ML VIAL IVP SCH ×3 (06:37→22:54)
[2019-12-07] MEDS: MEROPENEM 1 GM in NS 100 ML IV SCH ×3 (06:37→22:52)
[2019-12-07 06:39] LABS: HEMATOCRIT 26.3 % (36-54); HEMOGLOBIN 8.7 g/dL (14.0-18.0); MEAN CORPUSCULAR HEMOGLOBIN 33 pg (27-31); MEAN CORPUSCULAR HGB CONC 33 % (32-36); MEAN CORPUSCULAR VOLUME 100 fL (79.0-98.0); PLATELET COUNT (AUTO) 160 K/uL (130-430); RED BLOOD CELL COUNT(AUTO) 2.63 MIL/uL (4.2-6.2); RED CELL DISTRIBUTION WIDTH 21.1 % (9.0-15.0)
--- NOTE | 2019-12-07 08:00 | NUR ---
Received report from chloe DOMÍNGUEZ. assessment done.on vent setting ac 24, tv 550, Fio2 40% peep 5. ET 7.5, lipline 25 cm . ngt and right nare, check residual >200ml since last night feeding was discontinued. levophed @ 30mcg/kg/min, neosynephrine @ 10mcg/kg/min, vasopressin 0.07, versed 1 mg/hr, NS@60ml/hr. right femoral central line. dressing intact. multiple area of skin tear. generalized oozing, eye jaundice, non reactive to light. oral care provided. juan diego feet cyanotic. ng catheter draining dark yellow. keep hob elevated. bed is low and lock position. side rail up. kim monitor.
[2019-12-07 08:17] LABS: WHITE BLOOD COUNT (AUTO) 1.5 K/uL (4.8-10.8)
[2019-12-07 08:19] LABS: ALBUMIN 1.7 g/dL (3.4-4.8); CALCIUM 7.3 mg/dL (8.4-11.0); CREATININE 1.41 mg/dL (0.55-1.30); POTASSIUM 4.1 mmol/L (3.5-5.1)
[2019-12-07] MEDS: NACL 0.9% 1,000 ML IV SCH (08:19)
--- NOTE | 2019-12-07 08:19 | NUR ---
RT NOTES ABG results given to dr Vasquez, no changes at this time per doctor.
[2019-12-07] MEDS ORDERED: SODIUM BICARBONATE 8.4% JECT 50 MEQ/50 ML SYRINGE IVP SCH (08:45)
--- NOTE | 2019-12-07 10:00 | NUR ---
turn and reposition with pillow support. vasopressin , norsynephrine and levophed , versed infusing well. right femoral central line patent.
[2019-12-07] MEDS: VASOPRESSIN 200 UNITS in D5W 90 ML IV PRN (10:35)
[2019-12-07] MEDS: NITROGLYCERIN 1 INCH (GM) OINT. TP SCH (10:36)
[2019-12-07] MEDS: CALCIUM CARBONATE 500 MG/ TAB.CHEW PO SCH (10:36)
[2019-12-07] MEDS: ENOXAPARIN SODIUM 40 MG/0.4 ML SYRINGE SUBCUT SCH (10:37)
[2019-12-07] MEDS: PHENYLEPHRINE HCL 30 MG in NS 247 ML IV SCH ×2 (12:12→22:58)
[2019-12-07] MEDS: NOREPINEPHRINE BITARTRATE 16 MG in NS 246 ML IV PRN (12:19)
--- NOTE | 2019-12-07 12:46 | NUR ---
Nutrition F/U Admitting Diagnosis: Acute Respiratory Failure Medical History Comment: PMH: SOB, Unknown type lymphoma w/ pulmonary HTN, severe PNA, COPD, GERD, anxiety. Pt also found w/ s/p intubation 11/30, septic shock, severe malnutrition w/ low albumin, complicated UTI, and COVID-19 PUI per MD note and EMR. Pertinent Medical Information 12/06: MD reported worsening shock, appears to be edematous and does not need an emergent HD. Subjective Information: Pt remains in ICU, RD visit deferred d/t lack of PPE. RD called pt's primary RN but was told that pt was inside the room providing care to pt. Nursing rn unit manager will ask RN to call RD back. Per EMR, pt is intubated, on OGT feeding. Glucerna 1.2 is not available and will need a substitute for the time being. RD rec Nepro. Nursing unit was informed of message for RN. Current Diet Order/Nutrition Support: Glucerna 1.2 at 40m/lhr (goal rate), Free Water Flush at 250ml Q6H via OGT x 3 days Pertinent Medication: Lovenox, Solu-cortef, Tums, K-Dur, Colace Pertinent Labs: 12/06 Na 146 H, K 4.1 WNL, BUN 55H (trending up), CRE 1.41 H (trending down), BG 182H (trending up), COVID-19 PCR Negative x2 11/30 0610, 1838 Skin Integrity Comment: Vick scale 11. Per EMR, skin tear at medial sacrum and left buttocks and 3+ pitting edema on bilateral ankle and bilateral arm noted. NEW Estimated Energy Expenditure (kcals/day) Temperature: 98 degrees Fahrenheit/ 36.67 degress Celsius, Ve 12.7 1728 kcal/day (PSU 2003b for critical illness on vent support) Estimated Protein Required (g/day) 73-110g/day (1-1.5 gm/kg CBW for elevated renal lab values and septic shock) Estimated Fluid Required (l/day) 9901-1050 ml/day (1 ml/kcal/day for normal maintenance) Problem/Etiology/Signs/Symptoms Inadequate protein-energy intake related to increased nutritional demands as evidenced by septic shock, pt s/p intubation 6/18, and pt not having diet order. (*no longer applicable, pt w/ EN support ) Inadequate EN intake r/t current EN infusion rate AEB EN intake meets <60% of estimated calorie and protien needs. (*improved) Altered nutrition related labs r/t renal dysfunction AEB elevated BUN and CRE lab values. (*new 12/06) Expected Outcomes/Goals Monitor EN tolerance and intake with goal of pt meeting at least 80% of estimated nutritional needs, labs trending WNL, normal GI function, skin integrity, and wt maintenance. Dietitian Recommendations * Glucerna 1.2 is not available. *Recommend Nepro at 40ml/hr (goal rate), Free Water Flush 150ml Q6H via NGT Provides: 1728 kcal, 78gm protein and 1298ml free water daily. Meets: 100% of estimated calorie needs and 71% of upper end of estimated protein needs. Follow Up High Risk: F/U in 2-3days
--- NOTE | 2019-12-07 12:56 | NUR ---
Dietitian Recommendations * Glucerna 1.2 is not available. *Recommend Nepro at 40ml/hr (goal rate), Free Water Flush 150ml Q6H via NGT Provides: 1728 kcal, 78gm protein and 1298ml free water daily. Meets: 100% of estimated calorie needs and 71% of upper end of estimated protein needs. Please see Nutrition F/U note for details. CALLI, RD
[2019-12-07 13:28] LABS: ATYPICAL LYMPHOCYTES % 0 % (0-0); BAND % (MANUAL) 0 % (0-6); BASOPHILS % (MANUAL) 0 % (0-2); EOSINOPHILS % (MANUAL) 0 % (0-7); LYMPHOCYTES % (MANUAL) 35 % (20-46); MONOCYTES % (MANUAL) 11 % (0-11)
--- NOTE | 2019-12-07 14:00 | NUR ---
Patient repositioned by staff every 2 hours with pillow support.
--- NOTE | 2019-12-07 16:02 | NUR ---
patient ( ) obdulio sawyer, informed per Erica ( CNO) family is ok to visit. maximum of 2 person with limit time.
--- NOTE | 2019-12-07 16:10 | NUR ---
wound care nurse evaluated patient and wound dressing done at the same time. pt had large bowel movement. good pericare provided. turn and reposition with pillow support.
--- NOTE | 2019-12-07 16:55 | NUR ---
WOUND EVALUATION: Late note for 12/07/2019 secondary to patient care. Wound Consult received from Dr. Graham. Thank you Dr. Graham for the consult. Patient received in a Lucero Bed with an IsoFlex SHANNAN mattress, nonverbal, nonresponsive to verbal commands. Patient is unable to turn in bed independently. Vick Score is an 11. Past Medical History: Lymphoma, COPD, GERD, Anxiety, Pulmonary Hypertension, intubated, severe Pneumonia. Recent Labs: WBC 1.5, RBC 2.63, hemoglobin 8.7, hematocrit 26.3, sodium 146, chloride 115, BUN 55, creatinine 1.41, GFR 53, glucose 182, calcium 7.3, total bilirubin 4.0, AST 62, alkaline phosphatase 1108, serum total protein 3.8, albumin 1.7, PT 14.6, INR 1.5, PTT 43.7, d-dimer 901. Microbiology: Blood culture results x2 negative. Urine culture results negative. MRSA screen results negative. Intrinsic factors that delay wound healing: Lymphoma, COPD, Pulmonary Hypertension, severe hypoalbuminemia, hyperglycemia. Extrinsic factors that delay wound healing: Decreased mobility. Wound Assessment: 1. Right Buttock: Pressure ulcer, present on admission. Wound bed has 90% dark red tissue, 10% dark discolored tissue. No odor, no drainage. Periwound intact. Wound measures 13.0 cm x 9.0 cm. Recommend: Cleanse wound with normal saline. Apply Calmoseptine cream to alvino-wound. Apply Venelex ointment to wound bed. Cover with Sacral foam dressing. Perform wound care daily, and as needed for dressing soiling or dislodgement. 2. Left Buttock: Unstageable pressure ulcer, present on admission. Wound bed has 100% yellow tissue. No odor, no drainage. Periwound intact. Wound measures 11.0 cm x 7.5 cm. 3. Left Buttock, Lateral to Site 2: Unstageable pressure ulcer, present on admission. Wound bed has 100% yellow tissue. No odor, no drainage. Periwound intact. Wound measures 1.5 cm x 2.7 cm. Recommend: Cleanse wounds with normal saline. Apply Calmoseptine cream to alvino-wounds. Apply Venelex ointment to wound beds. Cover with foam dressing. Perform wound care daily, and as needed for dressing soiling or dislodgement. 4. Left Posterior Proximal Thigh: Pressure ulcer. Wound bed has 100% red tissue. No odor, no drainage. Periwound intact. Wound measures 0.5 cm x 0.7 cm. 5. Left Posterior Proximal Thigh, Inferior to wound 4: Pressure ulcer. Wound bed has 100% red tissue. No odor, no drainage. Periwound intact. Wound measures 2.0 cm x 2.0 cm. Recommend: Cleanse wounds with normal saline. Apply Calmoseptine cream to alvino-wounds. Apply Venelex ointment to wound beds. Cover with foam dressing. Perform wound care daily, and as needed for dressing soiling or dislodgement. 6. Left Lateral Hip: Multiple dry red excoriations. Recommend: Cleanse site with normal saline. Pat dry. Apply Calmoseptine cream to site. Perform site care daily, and as needed for soiling. 7. Right Knee: Chronic wound. Wound bed has 100% black scab. No odor, no drainage. Periwound intact, pink. Wound measures 0.7 cm x 1.2 cm. Recommend: No dressing needed. Continue monitor site every shift. 8. Left Foot (all toes): Dark discoloration, cool to the touch, present on admission. 9. Right Foot (all toes): Dark discoloration, cool to the touch, present on admission. Recommend: No dressings needed. Continue monitor sites every shift. 10. Scrotum: Gross edema and erythema from IAD, present on admission. Recommend: Cleanse involved area with mild soap and water. Pat dry. Apply Calmoseptine to erythematous Scrotal area. Cradle Scrotum with inter-dry AG cloth and elevate Scrotum by pulling cloth up in between thighs. Perform site care twice daily, and as needed for soiling. Change inter-dry AG cloth every 5 days, and as needed for cloth soiling. Place a folded pillow case underneath Scrotum to elevate. 11. Right antecubital area: Multiple micro skin tears. Recommend: Cleanse skin tears with normal saline. Pat dry. Cover with oil emulsion dressing, then foam dressing. Wrap with mirza wrap. Perform wound care daily, and as needed for dressing soiling or dislodgement. 12. Left Heel: Erythema, present on admission. 13. Right Heel: Erythema, present on admission. Recommend: Elevate, offload and float bilateral heels with one pillow lengthwise under each extremity at all times. Also recommend: Reposition patient side to side only every 2 hours with pillow support and off-load pressure areas with pillows for pressure re-distribution. Elevate, offload and float bilateral heels with one pillow lengthwise under each extremity at all times. Perform skin care and monitor skin integrity Q shift. Use Calmoseptine cream on buttocks and other moisture susceptible areas QID and as needed for soiling. Initiate low air-loss therapy.
[2019-12-07] MEDS: MICAFUNGIN SODIUM 100 MG in NS 100 ML IV SCH (17:00)
--- NOTE | 2019-12-07 17:30 | NUR ---
family ( and daughter) able to see patient.
--- NOTE | 2019-12-07 19:00 | NUR ---
PT RECEIVED AND REPORT AT BEDSIDE NO CHANGES IN ASSESSMENT
--- NOTE | 2019-12-07 19:13 | NUR ---
no significant changes of condition noted, vital sign stable with vasopressin, Levophed, norsynephrine. vent setting ac 24, tv 550, fio4 40%, peep 5, saturation 90-100%. no s/s of distress. keep feeding hold. saturation >200ml. will endorsed to incoming nurse.
[2019-12-08] VITALS (30 sets, daily range): BP systolic 93–131
[2019-12-08] MEDS: MEROPENEM 1 GM in NS 100 ML IV SCH ×3 (05:42→21:21)
[2019-12-08 05:43] LABS: HEMATOCRIT 28.7 % (36-54); HEMOGLOBIN 9.4 g/dL (14.0-18.0); MEAN CORPUSCULAR HEMOGLOBIN 33 pg (27-31); MEAN CORPUSCULAR HGB CONC 33 % (32-36); MEAN CORPUSCULAR VOLUME 100 fL (79.0-98.0); PLATELET COUNT (AUTO) 162 K/uL (130-430); RED BLOOD CELL COUNT(AUTO) 2.87 MIL/uL (4.2-6.2); RED CELL DISTRIBUTION WIDTH 20.9 % (9.0-15.0)
[2019-12-08] MEDS: HYDROCORTISONE SOD SUCC 100 MG/2 ML VIAL IVP SCH ×3 (05:44→21:21)
[2019-12-08 05:57] LABS: WHITE BLOOD COUNT (AUTO) 1.1 K/uL (4.8-10.8)
[2019-12-08 06:01] LABS: ALBUMIN 1.7 g/dL (3.4-4.8); CALCIUM 7.1 mg/dL (8.4-11.0); CREATININE 1.27 mg/dL (0.55-1.30); POTASSIUM 3.7 mmol/L (3.5-5.1); TOTAL BILIRUBIN 4.2 mg/dL (0.0-1.0)
--- NOTE | 2019-12-08 06:07 | NUR ---
PAGED DR. VERONICA [phone] SPOKE WITH NANCI
--- NOTE | 2019-12-08 06:13 | NUR ---
DR. ARIEL GARRIDO MADE AWARE OF PT WBC 1.1. PER MD NO NEW ORDERS AT THIS TIME.
[2019-12-08 06:34] LABS: ATYPICAL LYMPHOCYTES % 0 % (0-0); BAND % (MANUAL) 2 % (0-6); BASOPHILS % (MANUAL) 0 % (0-2); EOSINOPHILS % (MANUAL) 0 % (0-7); LYMPHOCYTES % (MANUAL) 6 % (20-46); MONOCYTES % (MANUAL) 4 % (0-11)
--- NOTE | 2019-12-08 07:36 | NUR ---
SBAR report received from Arcenio DOMÍNGUEZ. Vital signs, labs, IV drips endorsed.
[2019-12-08] MEDS: NACL 0.9% 1,000 ML IV SCH ×2 (08:33→19:30)
--- NOTE | 2019-12-08 08:50 | NUR ---
Dr Vasquez in to see patient. Said okay to hold tube feeding for now. No other orders.
[2019-12-08] MEDS: NOREPINEPHRINE BITARTRATE 16 MG in NS 246 ML IV PRN ×2 (08:58→21:22)
--- NOTE | 2019-12-08 09:00 | NUR ---
Dr Graham in to see patient. No new orders received.
[2019-12-08] MEDS: ENOXAPARIN SODIUM 40 MG/0.4 ML SYRINGE SUBCUT SCH (09:18)
[2019-12-08] MEDS: NITROGLYCERIN 1 INCH (GM) OINT. TP SCH (09:18)
[2019-12-08] MEDS: CALCIUM CARBONATE 500 MG/ TAB.CHEW PO SCH (12:05)
[2019-12-08] MEDS: PHENYLEPHRINE HCL 30 MG in NS 247 ML IV SCH (16:25)
[2019-12-08] MEDS: MICAFUNGIN SODIUM 100 MG in NS 100 ML IV SCH (16:52)
--- NOTE | 2019-12-08 19:15 | NUR ---
Opening Note Patient report received via SBAR from endorsing RN
--- NOTE | 2019-12-08 19:30 | NUR ---
SBAR report given to Binu DOMÍNGUEZ. All vital signs, abnormal labs, and IV drips endorsed.
--- NOTE | 2019-12-08 20:00 | NUR ---
Nursing Note Patient repartition in bed and provided oral care
[2019-12-08] MEDS: MIDAZOLAM HCL IN 0.9 % NACL/PF 50 ML IV PRN (20:03)
[2019-12-09] VITALS (37 sets, daily range): BP systolic 91–127
--- NOTE | 2019-12-09 | NUR ---
Nursing Note Patient had loose BM, patient was cleaned, linens changed, patient repositioned. Patient tolerated well
--- NOTE | 2019-12-09 | NUR ---
Nursing Note Patient was repositioned in bed and provided oral care, patient tolerated well
--- NOTE | 2019-12-09 03:00 | NUR ---
Nursing Note Patient's central line dressing changed using sterile technique as previous dressing had become dislodged.
[2019-12-09] MEDS: NACL 0.9% 1,000 ML IV SCH (03:06)
[2019-12-09] MEDS: MEROPENEM 1 GM in NS 100 ML IV SCH ×3 (05:17→21:31)
[2019-12-09] MEDS: HYDROCORTISONE SOD SUCC 100 MG/2 ML VIAL IVP SCH ×3 (05:17→21:31)
--- NOTE | 2019-12-09 06:00 | NUR ---
Nursing Note Patient had loose BM, patient cleaned, wound care performed, linens change, patient repositioned.
--- NOTE | 2019-12-09 07:30 | NUR ---
Closing Note Patient report given to nightshift RN via SBAR
--- NOTE | 2019-12-09 07:48 | NUR ---
DESIRE report received from Arcenio DOMÍNGUEZ. Vital signs, labs, IV drips endorsed. Addendum: 12/09/19 at 0753 by Gilles Lechuga RN Error, report received from Sheela.
[2019-12-09] MEDS: NITROGLYCERIN 1 INCH (GM) OINT. TP SCH (08:25)
[2019-12-09] MEDS: ENOXAPARIN SODIUM 40 MG/0.4 ML SYRINGE SUBCUT SCH (08:26)
[2019-12-09] MEDS: CALCIUM CARBONATE 500 MG/ TAB.CHEW PO SCH (09:54)
--- NOTE | 2019-12-09 10:00 | NUR ---
Dr Turner here to see patient. Ordered rectal tube for multiple liquid stools over the past 24 hours.
--- NOTE | 2019-12-09 10:15 | NUR ---
Called Nia Ambrosio with a consult,left message on voice mail
--- NOTE | 2019-12-09 10:20 | NUR ---
DR Casper here to see patient. Ordered c.diff culture to be obtained and sent to lab. Also ordered tube feeding to be resumed per previous order.
[2019-12-09] MEDS: VASOPRESSIN 200 UNITS in D5W 90 ML IV PRN (15:27)
[2019-12-09] MEDS: NOREPINEPHRINE BITARTRATE 16 MG in NS 246 ML IV PRN (15:45)
[2019-12-09] MEDS: MICAFUNGIN SODIUM 100 MG in NS 100 ML IV SCH (17:59)
--- NOTE | 2019-12-09 19:30 | NUR ---
Opening Note Patient report received via SBAR from endorsing RN
--- NOTE | 2019-12-09 22:30 | NUR ---
Round Dr. Almaraz in to see patient
[2019-12-10] VITALS (30 sets, daily range): BP systolic 83–157
[2019-12-10] MEDS: NACL 0.9% 1,000 ML IV SCH (02:59)
--- NOTE | 2019-12-10 04:00 | NUR ---
Nursing Note Patient was pulled up in bed and repositioned. Patient tolerated well
[2019-12-10] MEDS: HYDROCORTISONE SOD SUCC 100 MG/2 ML VIAL IVP SCH ×3 (04:50→22:38)
[2019-12-10] MEDS: MEROPENEM 1 GM in NS 100 ML IV SCH (04:50)
[2019-12-10 06:55] LABS: HEMATOCRIT 26.8 % (36-54); HEMOGLOBIN 8.7 g/dL (14.0-18.0); MEAN CORPUSCULAR HEMOGLOBIN 32 pg (27-31); MEAN CORPUSCULAR HGB CONC 32 % (32-36); MEAN CORPUSCULAR VOLUME 100 fL (79.0-98.0); PLATELET COUNT (AUTO) 137 K/uL (130-430); RED BLOOD CELL COUNT(AUTO) 2.69 MIL/uL (4.2-6.2); RED CELL DISTRIBUTION WIDTH 21.1 % (9.0-15.0)
[2019-12-10 07:00] LABS: ALBUMIN 1.3 g/dL (3.4-4.8); CALCIUM 7.6 mg/dL (8.4-11.0); CREATININE 1.16 mg/dL (0.55-1.30); POTASSIUM 3.3 mmol/L (3.5-5.1); TOTAL BILIRUBIN 3.3 mg/dL (0.0-1.0)
--- NOTE | 2019-12-10 07:27 | NUR ---
Closing Note Patient report given to receiving RN via SBAR
[2019-12-10] MEDS: ENOXAPARIN SODIUM 40 MG/0.4 ML SYRINGE SUBCUT SCH (08:15)
[2019-12-10] MEDS: CALCIUM CARBONATE 500 MG/ TAB.CHEW PO SCH (08:15)
[2019-12-10] MEDS: NITROGLYCERIN 1 INCH (GM) OINT. TP SCH (08:16)
[2019-12-10 08:43] LABS: WHITE BLOOD COUNT (AUTO) 0.7 K/uL (4.8-10.8)
--- NOTE | 2019-12-10 09:30 | NUR ---
RT NOTES ABG ATTEMPTED, X2 LEFT RADIAL, X1 LEFT FEMORAL, ARE ALL UNSUCCESSFUL, ONLY FLUID WAS COLLECTED. CATRACHITA KENNY WAS AT BEDSIDE AND WITNESSED. ALSO NOTIFIED CATRACHITA ISAAC.
--- NOTE | 2019-12-10 10:43 | NUR ---
Nutrition F/U Admitting Diagnosis: Acute Respiratory Failure Medical History Comment: PMH: SOB, Unknown type lymphoma w/ pulmonary HTN, severe PNA, COPD, GERD, anxiety. Pt also found w/ s/p intubation 11/30, septic shock, severe malnutrition w/ low albumin, complicated UTI, and COVID-19 PUI per MD note and EMR. Pertinent Medical Information 12/06: MD reported worsening shock, appears to be edematous and does not need an emergent HD. Subjective Information: Pt remains in ICU, RD visit deferred d/t lack of PPE. Per MD progress note, pt is still intubated, on OGT feeding. Per previous RD note: Glucerna 1.2 is not available and will need a substitute for the time being. RD rec Leonarda. Nursing unit was informed of message for RN. Current Diet Order/Nutrition Support: Glucerna 1.2 at 40m/lhr (goal rate), Free Water Flush at 250ml Q6H via OGT x 3 days Pertinent Medication: Lovenox, Solu-cortef, Tums, K-Dur, Colace Pertinent Labs: 12/09 Na 152 H, K 3.3 L, BUN 58 H (trending up), GFR 81 L, BG 159 H, AST 79 H COVID-19 PCR Negative x2 11/30 0610, 1838 Skin Integrity Comment: Vick scale 10. Per EMR, skin tear at medial sacrum and left buttocks and 3+ pitting edema on bilateral ankle and bilateral arm noted. Skin is noted to be pale. NEW Estimated Energy Expenditure (kcals/day) Temperature: 98 degrees Fahrenheit/ 36.67 degress Celsius, Ve 12.7 1728 kcal/day (PSU 2003b for critical illness on vent support) Estimated Protein Required (g/day) 73-110g/day (1-1.5 gm/kg CBW for elevated renal lab values and septic shock) Estimated Fluid Required (l/day) 2274-7286 ml/day (1 ml/kcal/day for normal maintenance) Problem/Etiology/Signs/Symptoms Inadequate protein-energy intake related to increased nutritional demands as evidenced by septic shock, pt s/p intubation 11/30, and pt not having diet order. (*no longer applicable, pt w/ EN support ) Inadequate EN intake r/t current EN infusion rate AEB EN intake meets <60% of estimated calorie and protien needs. (*Improved) Altered nutrition related labs r/t renal dysfunction AEB elevated BUN and CRE lab values. (*Improving) Expected Outcomes/Goals Monitor EN tolerance and intake with goal of pt meeting at least 80% of estimated nutritional needs, labs trending WNL, normal GI function, skin integrity, and wt maintenance. (*Ongoing) Dietitian Recommendations * Glucerna 1.2 is not available. *Recommend Nepro at 40ml/hr (goal rate), Free Water Flush 150ml Q6H via NGT Provides: 1728 kcal, 78gm protein and 1298ml free water daily. Meets: 100% of estimated calorie needs and 71% of upper end of estimated protein needs. Follow Up High Risk: F/U in 2-3days
--- NOTE | 2019-12-10 10:51 | NUR ---
Dietitian Recommendations * Glucerna 1.2 is not available. *Recommend Nepro at 40ml/hr (goal rate), Free Water Flush 150ml Q6H via NGT Provides: 1728 kcal, 78gm protein and 1298ml free water daily. Meets: 100% of estimated calorie needs and 71% of upper end of estimated protein needs. Please see nutrition F/U for details. SS, RD
[2019-12-10 11:57] LABS: BASOPHILS % (MANUAL) 0 % (0-2); CORRECTED WHITE BLOOD COUNT 0.6 K/uL (4.5-11.0); EOSINOPHILS % (MANUAL) 0 % (0-7); LYMPHOCYTES % (MANUAL) 25 % (20-46); MONOCYTES % (MANUAL) 17 % (0-11)
[2019-12-10] MEDS: NOREPINEPHRINE BITARTRATE 16 MG in NS 246 ML IV PRN ×2 (13:30→17:50)
[2019-12-10] MEDS: 0.45% NACL 1,000 ML IV SCH (15:34)
[2019-12-10] MEDS: MICAFUNGIN SODIUM 100 MG in NS 100 ML IV SCH (17:49)
--- NOTE | 2019-12-10 19:43 | NUR ---
Report received, All care assumed. Pt resting in Bed, intubated and vented. Pt tolerating vent well. R femoral central line, ng and flexi-seal in place. No signs of medical appliance malfunction, leaks, infiltration at this time. pt appears calm, no acute distress at this time.
[2019-12-10] MEDS: KCL 20 mEq in 100 mL (PREMIX) 100 ML IV SCH ×2 (22:37→22:45)
[2019-12-11] VITALS (31 sets, daily range): BP systolic 92–124
--- NOTE | 2019-12-11 | NUR ---
Partial bed bath performed. Pt wiped with CHG cloths, re-draped with clean linen. Oral care provided.
[2019-12-11] MEDS: 0.45% NACL 1,000 ML IV SCH ×2 (04:44→17:17)
[2019-12-11 07:18] LABS: CALCIUM 7.3 mg/dL (8.4-11.0); CREATININE 0.98 mg/dL (0.55-1.30); POTASSIUM 3.6 mmol/L (3.5-5.1)
[2019-12-11 07:32] LABS: HEMATOCRIT 29.4 % (36-54); HEMOGLOBIN 9.6 g/dL (14.0-18.0); MEAN CORPUSCULAR HEMOGLOBIN 33 pg (27-31); MEAN CORPUSCULAR HGB CONC 33 % (32-36); MEAN CORPUSCULAR VOLUME 100 fL (79.0-98.0); RED BLOOD CELL COUNT(AUTO) 2.93 MIL/uL (4.2-6.2); RED CELL DISTRIBUTION WIDTH 21.4 % (9.0-15.0)
--- NOTE | 2019-12-11 08:00 | NUR ---
Levophed titrated to 5mcg/min.
[2019-12-11 08:27] LABS: WHITE BLOOD COUNT (AUTO) 0.5 K/uL (4.8-10.8)
[2019-12-11] MEDS ORDERED: FUROSEMIDE 40 MG/4 ML VIAL IVP ONE (08:45)
--- NOTE | 2019-12-11 09:09 | NUR ---
Calcium Carbonate dose not available, spoke with Hardik in pharmacy, her verbalized understanding.
[2019-12-11] MEDS: ENOXAPARIN SODIUM 40 MG/0.4 ML SYRINGE SUBCUT SCH (09:14)
[2019-12-11] MEDS: NITROGLYCERIN 1 INCH (GM) OINT. TP SCH (09:15)
--- NOTE | 2019-12-11 09:20 | NUR ---
Levophed titrated to 4mcg/min.
--- NOTE | 2019-12-11 09:52 | NUR ---
Tums still not available, Bach notified in pharmacy.
[2019-12-11] MEDS: CALCIUM CARBONATE 500 MG/ TAB.CHEW PO SCH (10:06)
--- NOTE | 2019-12-11 10:15 | NUR ---
Levophed titrated to 3mcg/min.
--- NOTE | 2019-12-11 11:20 | NUR ---
Levophed titrated to 2mcg/min.
[2019-12-11 12:26] LABS: PLATELET COUNT (AUTO) 135 K/uL (130-430)
--- NOTE | 2019-12-11 12:45 | NUR ---
Levophed titrated to 1mcg/min.
[2019-12-11] MEDS: HYDROCORTISONE SOD SUCC 100 MG/2 ML VIAL IVP SCH ×2 (14:01→23:55)
--- NOTE | 2019-12-11 15:15 | NUR ---
Levophed turned off.
--- NOTE | 2019-12-11 17:15 | NUR ---
Vasopressin titrated to 0.045u/min.
[2019-12-11] MEDS: MICAFUNGIN SODIUM 100 MG in NS 100 ML IV SCH (17:17)
[2019-12-11] MEDS: VASOPRESSIN 200 UNITS in D5W 90 ML IV PRN (17:28)
--- NOTE | 2019-12-11 19:25 | NUR ---
Report given to CATRACHITA Wilkins for continuation of care. All needs endorsed.
--- NOTE | 2019-12-11 19:26 | NUR ---
REPORT RECIEVED FROM CATRACHITA PEREZ. ALL CARE ASSUMED. PT RESTING IN BED, NO APPARENT DISTRESS. PT VENTILATOR TOLERATED WELL, CENTRAL LINE IN R FEMORAL INFUSING IV FLUIDS AND VASOPRESSIN. NO S/S OF INFILTRATION OR INFECTION NOTED. PT CONTINUES TO WEEP FLUID FROM SKIN. PT RESTING ON CLEAN/FRESH CHUX AND LINENS. PT UNRESPONSIVE TO VOICE OR VISUAL STIMULI. ONEILL CATHETER AND FLEXI-SEAL EMPTIED AT START OF SHIFT.
--- NOTE | 2019-12-11 23:30 | NUR ---
vasopressin titrated to 0.04 units/min
[2019-12-12] VITALS (30 sets, daily range): BP systolic 87–125
[2019-12-12] MEDS: FUROSEMIDE 40 MG/4 ML VIAL IVP SCH ×3 (00:02→21:21)
--- NOTE | 2019-12-12 03:00 | NUR ---
pt given bed bath with chg wipes. Flexi-seal intact, draining. ng intact, draining
--- NOTE | 2019-12-12 04:00 | NUR ---
Vasopressin Titrated to 0.035. pt has tolerated previous decrease to 0.040 well, no descending MAP trend.
--- NOTE | 2019-12-12 06:00 | NUR ---
Vasopressin titrated to 0.030 units/min
[2019-12-12] MEDS: HYDROCORTISONE SOD SUCC 100 MG/2 ML VIAL IVP SCH ×3 (06:08→21:22)
[2019-12-12 06:33] LABS: EOSINOPHILS % (AUTO) 0.9 % (0.0-4.0); HEMOGLOBIN 8.9 g/dL (14.0-18.0); LYMPHOCYTES # (AUTO) 0.3 K/uL (1.0-5.5); LYMPHOCYTES % (AUTO) 82.1 % (20.5-51.5); MEAN CORPUSCULAR HEMOGLOBIN 33 pg (27-31); MEAN CORPUSCULAR HGB CONC 33 % (32-36); MEAN CORPUSCULAR VOLUME 99 fL (79.0-98.0); MONOCYTES % (AUTO) 1.6 % (1.7-9.3); NEUTROPHILS % (AUTO) 15.4 % (40.0-70.0); PLATELET COUNT (AUTO) 114 K/uL (130-430); RED BLOOD CELL COUNT(AUTO) 2.73 MIL/uL (4.2-6.2); RED CELL DISTRIBUTION WIDTH 21.5 % (9.0-15.0)
--- NOTE | 2019-12-12 07:15 | NUR ---
Opening Note Patient report received via SBAR from endorsing RN
[2019-12-12 07:21] LABS: CALCIUM 7.4 mg/dL (8.4-11.0); CREATININE 0.88 mg/dL (0.55-1.30)
[2019-12-12] MEDS: 0.45% NACL 1,000 ML IV SCH ×2 (07:25→21:44)
[2019-12-12 07:51] LABS: NEUTROPHILS # (AUTO) 0.1 K/uL (1.8-7.7); WHITE BLOOD COUNT (AUTO) 0.3 K/uL (4.8-10.8)
--- NOTE | 2019-12-12 08:00 | NUR ---
Nursing Note Patient cleaned, linens changed, wound care performed. Patient tolerated well
--- NOTE | 2019-12-12 08:30 | NUR ---
Round Dr. Casper in to see patient, no new orders
[2019-12-12 08:39] LABS: POTASSIUM 2.8 mmol/L (3.5-5.1)
--- NOTE | 2019-12-12 08:50 | NUR ---
ROUND Dr. Graham in to see patient, Physician discussed patient's poor prognosis with family. No new orders
[2019-12-12] MEDS: CALCIUM CARBONATE 500 MG/ TAB.CHEW PO SCH (08:52)
[2019-12-12] MEDS: NITROGLYCERIN 1 INCH (GM) OINT. TP SCH (08:53)
[2019-12-12] MEDS: ENOXAPARIN SODIUM 40 MG/0.4 ML SYRINGE SUBCUT SCH (08:53)
--- NOTE | 2019-12-12 09:10 | NUR ---
ROUND Dr. Almaraz in to see patient. Physician discussed patient's prognosis with the family. Family to call back regarding decision about terminal extubation
[2019-12-12 09:33] LABS: INR 1.3 (0.80-1.20); PROTHROMBIN TIME 12.5 SECS (9.5-12.5)
--- NOTE | 2019-12-12 10:10 | NUR ---
Round Dr. Yen in to see patient, no new orders
--- NOTE | 2019-12-12 12:20 | NUR ---
Round Dr. Ordaz in to see patient, no new orders
--- NOTE | 2019-12-12 14:20 | NUR ---
Round Dr. Garcia in to see patient, no new orders
--- NOTE | 2019-12-12 14:45 | NUR ---
Nursing Note Patient's daughter called regarding patient's condition. Family wants to wait on terminal extubation until they're able to see the patient. Daughter provided contact information for attending physician as requested.
--- NOTE | 2019-12-12 16:00 | NUR ---
MD DAMIAN Graham spoke with family regarding terminal extubation. Family will come in to visit patient, terminal extubation will be performed when family is ready
[2019-12-12] MEDS ORDERED: FILGRASTIM Non-Formulary 0.48 MG/VIAL SUBCUT SCH (17:00)
[2019-12-12] MEDS ORDERED: MENTHOL/ZINC OXIDE 113 GM OINT. TP PRN (18:00)
[2019-12-12] MEDS: MICAFUNGIN SODIUM 100 MG in NS 100 ML IV SCH (18:14)
[2019-12-12] MEDS: TBO-FILGRASTIM 480 MCG/0.8 ML SYRINGE SUBCUT SCH (18:14)
--- NOTE | 2019-12-12 19:21 | NUR ---
Closing Note Patient report given to nightshift RN via SBAR
--- NOTE | 2019-12-12 20:00 | NUR ---
OBTUNDED. ORALLY INTUBATED. SUCTIONED WITH SMALL AMOUNT OF THICK KOLB COLORED MUCUS OBTAINED. ORAL CARE GIVEN. RIGHT NARES NGT FEEDING WITH GLUCERNA 1.5 INFUSING AT 40CC/HR. RESIDUAL CHECK 60CC. NGT FLUSHED WITH 300CC H2O. ARMS WEEPING. EXTREMITIES EDEMATOUS. RIGHT FEMORAL TLC DRSG D/I. ONEILL CATH PATENT DRAINING CLEAR DIONISIO URINE TO GRAVITY. FLEXISEAL IN PLACE WITH LOOSE BROWN STOOL NOTED. SINUS RHYTHM.
--- NOTE | 2019-12-12 22:00 | NUR ---
HS CARE DONE. SUCTIONED WITH SAME RESULTS. TURNED.
--- NOTE | 2019-12-12 23:30 | NUR ---
DR LE HERE, UPDATED ON STATUS. NO NEW ORDERS GIVEN.
[2019-12-13] VITALS (36 sets, daily range): BP systolic 79–124
--- NOTE | 2019-12-13 | NUR ---
BP LABILE. SUCTIONED. REPOSITIONED. RESIDUAL CHECK 100CC. NGT FLUSHED WITH 300CC H2O.
--- NOTE | 2019-12-13 02:00 | NUR ---
SLIGHTLY REACTS TO NOXIOUS STIMULI. CLOSES EYES AND SLIGHTLY GRIMACES WHEN SUCTIONING.
--- NOTE | 2019-12-13 04:00 | NUR ---
SUCTIONED. ORAL CARE GIVEN. RESIDUAL CHECK 80, NGT FLUSHED WITH 300CC H2O. SCROTAL EDEMA NOTED. FLEXISEAL LEAKING AROUND INSERTION SITE IN ANUS, CLEANED. DARLENE-CARE DONE. CHG BATH RENDERED. ARMS WEEPING. SKIN CARE DONE. ONEILL CARE, BACK CARE GIVEN. PARTIAL LINEN CHANGE. DOES NOT ASSIST WITH TURNING. ERICKSON PROC WELL.
--- NOTE | 2019-12-13 05:00 | NUR ---
BP 79/53, LEVOPHED QUADRUPLE STRENGTH RESTARTED AT 4 MCG/MIN.
--- NOTE | 2019-12-13 06:00 | NUR ---
UO GOOD. LEVOPHED AT 4 MCG/MIN. SINUS RHYTHM WITH OCCASIONAL PVC'S ON THE MONITOR. FLEXISEAL IN PLACE. REMAINS IN GUARDED CONDITION.
[2019-12-13] MEDS: HYDROCORTISONE SOD SUCC 100 MG/2 ML VIAL IVP SCH ×3 (06:12→21:20)
[2019-12-13 06:32] LABS: HEMATOCRIT 27.9 % (36-54); HEMOGLOBIN 9.2 g/dL (14.0-18.0); MEAN CORPUSCULAR HEMOGLOBIN 33 pg (27-31); MEAN CORPUSCULAR HGB CONC 33 % (32-36); MEAN CORPUSCULAR VOLUME 100 fL (79.0-98.0); PLATELET COUNT (AUTO) 86 K/uL (130-430); RED CELL DISTRIBUTION WIDTH 22.2 % (9.0-15.0)
--- NOTE | 2019-12-13 07:10 | NUR ---
Report received from CATRACHITA Bauer for continuation of care.
[2019-12-13 07:20] LABS: WHITE BLOOD COUNT (AUTO) 0.4 K/uL (4.8-10.8)
[2019-12-13 07:51] LABS: CALCIUM 7.6 mg/dL (8.4-11.0)
[2019-12-13 08:30] LABS: POTASSIUM 2.5 mmol/L (3.5-5.1)
--- NOTE | 2019-12-13 08:55 | NUR ---
Levophed titrated to 3mcg/min.
[2019-12-13] MEDS: POTASSIUM CHLORIDE 20 MEQ TAB.PRT.SR PO PRN (09:03)
[2019-12-13] MEDS: CALCIUM CARBONATE 500 MG/ TAB.CHEW PO SCH (09:10)
[2019-12-13] MEDS: FUROSEMIDE 40 MG/4 ML VIAL IVP SCH ×2 (09:10→21:20)
[2019-12-13] MEDS: NITROGLYCERIN 1 INCH (GM) OINT. TP SCH (09:11)
[2019-12-13] MEDS: ENOXAPARIN SODIUM 40 MG/0.4 ML SYRINGE SUBCUT SCH (09:11)
[2019-12-13] MEDS: BALSAM PERU/CASTOR OIL 60 GM OINT...G. TP SCH (09:12)
[2019-12-13] MEDS: 0.45% NACL 1,000 ML IV SCH (09:12)
[2019-12-13] MEDS ORDERED: POTASSIUM CHLORIDE 20 MEQ/PKT PACKET PO ONE (10:00)
--- NOTE | 2019-12-13 10:00 | NUR ---
Levophed titrated to 2mcg/min.
[2019-12-13 10:30] LABS: BASOPHILS % (MANUAL) 0 % (0-2); CORRECTED WHITE BLOOD COUNT 0.3 K/uL (4.5-11.0); EOSINOPHILS % (MANUAL) 0 % (0-7); LYMPHOCYTES % (MANUAL) 64 % (20-46); MONOCYTES % (MANUAL) 10 % (0-11)
--- NOTE | 2019-12-13 13:00 | NUR ---
Levophed titrated to 1mcg/min.
--- NOTE | 2019-12-13 14:10 | NUR ---
Nutrition F/U Admitting Diagnosis: Acute Respiratory Failure Medical History Comment: PMH: SOB, Unknown type lymphoma w/ pulmonary HTN, severe PNA, COPD, GERD, anxiety. Pt also found w/ s/p intubation 11/30, septic shock, severe malnutrition w/ low albumin, complicated UTI, and COVID-19 PUI per MD note and EMR. Subjective Information: Pt remains in ICU, RD visit deferred d/t lack of PPE. Per MD progress note, pt is still intubated, on OGT feeding, too unstable for any procedure, edematous, poor prognosis. Per previous RD note: Glucerna 1.2 is not available and will need a substitute for the time being. RD rec Leonarda. RN informed of unavailability of Glucerna formula. Per EMR review, family decided to terminally extubate pt tomorrow 12/14/2019. Current Diet Order/Nutrition Support: Glucerna 1.2 at 40m/lhr (goal rate), Free Water Flush at 250ml Q6H via OGT Pertinent Medication: Lovenox, Solu-cortef, Tums, K-Dur, Colace, Lasix Pertinent Labs: 12/12 Na 147 H, K 2.5 L, BUN 53 H (trending down), BG 162 H, WBC 0.4 L COVID-19 PCR Negative x2 11/30 0610, 1838 Skin Integrity Comment: Vick scale 9. Per [employer] note 12/06 +Pressure Ulcer to Right and Left buttocks. Per RN notes, 3+ pitting edema on bilateral ankle and bilateral arm noted. Skin is noted to be pale. Estimated Energy Expenditure (kcals/day) 1728 kcal/day (PSU 2003b for critical illness on vent support) Estimated Protein Required (g/day) 73-110g/day (1-1.5 gm/kg CBW for elevated renal lab values and septic shock) Estimated Fluid Required (l/day) 7286-3057 ml/day (1 ml/kcal/day for normal maintenance) Problem/Etiology/Signs/Symptoms Inadequate protein-energy intake related to increased nutritional demands as evidenced by septic shock, pt s/p intubation 11/30, and pt not having diet order. (*no longer applicable, pt w/ EN support ) Inadequate EN intake r/t current EN infusion rate AEB EN intake meets <60% of estimated calorie and protein needs. (*Improved) Altered nutrition related labs r/t renal dysfunction AEB elevated BUN and CRE lab values. (*Improving) Expected Outcomes/Goals Monitor EN tolerance and intake with goal of pt meeting at least 80% of estimated nutritional needs, labs trending WNL, normal GI function, skin integrity, and wt maintenance. (*Ongoing) Dietitian Recommendations * Glucerna 1.2 is not available. *Recommend Nepro at 40ml/hr (goal rate), Free Water Flush 150ml Q6H via NGT Provides: 1728 kcal, 78gm protein and 1298ml free water daily. Meets: 100% of estimated calorie needs and 71% of upper end of estimated protein needs. Follow Up High Risk: F/U in 2-3days
--- NOTE | 2019-12-13 16:00 | NUR ---
Levophed restarted at 2mcg/min.
[2019-12-13] MEDS: TBO-FILGRASTIM 480 MCG/0.8 ML SYRINGE SUBCUT SCH (16:13)
--- NOTE | 2019-12-13 19:09 | NUR ---
Report given to CATRACHITA Bauer for continuation of care. All care endorsed.
--- NOTE | 2019-12-13 20:00 | NUR ---
ORALLY INTUBATED. SUCTIONED WITH SMALL AMOUNT OF THICK YELLOW COLORED MUCUS OBTAINED. ORAL CARE DONE. NGT FEEDING WITH GLUCERNA AT 40CC/HR. RESIDUAL CHECK 60. NGT FLUSHED WITH 300CC H2O. RIGHT GROIN TLC DRSG D/I. ON LEVOPHED AT 2 MCG/MIN. FLEXISEAL IN PLACE WITH LOOSE BM NOTED. SR WITH OCCASIONAL PVC'S IN THE MONITOR.
--- NOTE | 2019-12-13 22:00 | NUR ---
ARMS WEEPING. HS CARE DONE. SUCTIONED. TURNED.
--- NOTE | 2019-12-13 23:00 | NUR ---
BP 83/49, LEVOPHED TITRATED UP TO 4 MCG/MIN.
[2019-12-14] VITALS (16 sets, daily range): BP systolic 38–99
--- NOTE | 2019-12-14 | NUR ---
BP HOVERING IN THE 90'S WITH LEVOPHED AT 4 MCG/MIN. SUCTIONED WITH SAME RESULTS. RESIDUAL CHECK 100CC. NGT FLUSHED WITH 300 CCH2O. ORAL CARE RENDERED.
--- NOTE | 2019-12-14 02:00 | NUR ---
SUCTIONED AGAIN. TURNED.
--- NOTE | 2019-12-14 04:00 | NUR ---
BP 85/60, LEVOPHED TITRATED UP TO 6 MCG/MIN. RESIDUAL CHECK 10CC NGT FLUSHED WITH 300CC H2O. ORAL CARE DONE. SUCTIONED. TURNED.
[2019-12-14] MEDS: 0.45% NACL 1,000 ML IV SCH (04:07)
--- NOTE | 2019-12-14 05:00 | NUR ---
ARMS AND TORSO WEEPING. CHG BATH GIVEN. FLEXISEAL LEAKING AROUND INSERTION SITE IN ANUS. CLEANED. Z-GUARD APPLIED TO PERINEUM, DARLENE-CARE RENDERED. SKIN CARE DONE. ONEILL CARE, BACK CARE GIVEN. COMPLETE LINEN CHANGE. DOES NOT ASSIST WITH TURNING. ERICKSON PROC WELL.
[2019-12-14 05:55] LABS: EOSINOPHILS % (AUTO) 1.3 % (0.0-4.0); HEMATOCRIT 29.8 % (36-54); HEMOGLOBIN 9.8 g/dL (14.0-18.0); LYMPHOCYTES # (AUTO) 0.1 K/uL (1.0-5.5); LYMPHOCYTES % (AUTO) 76.7 % (20.5-51.5); MEAN CORPUSCULAR HEMOGLOBIN 33 pg (27-31); MEAN CORPUSCULAR HGB CONC 33 % (32-36); MEAN CORPUSCULAR VOLUME 99 fL (79.0-98.0); MONOCYTES % (AUTO) 2.4 % (1.7-9.3); NEUTROPHILS % (AUTO) 19.6 % (40.0-70.0); RED CELL DISTRIBUTION WIDTH 22.3 % (9.0-15.0)
--- NOTE | 2019-12-14 06:00 | NUR ---
UO ADEQUATE. FLEXISEAL WITH 100CC OUT. REMAINS IN GUARDED CONDITION.
[2019-12-14] MEDS: HYDROCORTISONE SOD SUCC 100 MG/2 ML VIAL IVP SCH (06:16)
[2019-12-14 06:30] LABS: CALCIUM 7.7 mg/dL (8.4-11.0); CREATININE 0.97 mg/dL (0.55-1.30)
[2019-12-14 07:13] LABS: POTASSIUM 2.8 mmol/L (3.5-5.1)
[2019-12-14] MEDS ORDERED: POTASSIUM CHLORIDE 20 MEQ/PKT PACKET NG PRN (07:50)
[2019-12-14] MEDS: CALCIUM CARBONATE 500 MG/ TAB.CHEW PO SCH (08:02)
[2019-12-14] MEDS: ENOXAPARIN SODIUM 40 MG/0.4 ML SYRINGE SUBCUT SCH (08:03)
[2019-12-14 08:15] LABS: PLATELET COUNT (AUTO) 43 K/uL (130-430); WHITE BLOOD COUNT (AUTO) 0.2 K/uL (4.8-10.8)
--- NOTE | 2019-12-14 08:20 | NUR ---
GI Consult: seen by dr. Rush updated about the poc.
--- NOTE | 2019-12-14 08:30 | NUR ---
Increase Levophed to 10mcg/kg/min, blood pressure 74/49, pulse 100, saturation 94% resp 32.
[2019-12-14] MEDS: FUROSEMIDE 40 MG/4 ML VIAL IVP SCH (09:00)
[2019-12-14] MEDS ORDERED: MORPHINE I.V. DRIP 100 ML IV PRN ×2 (09:00→09:15)
--- NOTE | 2019-12-14 09:01 | NUR ---
MD Graham is here, s/w family at bedside and agreed about the terminal extubation,DNR form was signed. received order for morphine drip 2 mg/hr, titrate prn. carried and noted.
--- NOTE | 2019-12-14 11:23 | NUR ---
morphine drip @ 2mg/hr started blood pressure 67/23, pulse 95, saturation 93%. family is here and aware about the poc. family needs assistance for mortuary. Marlene ( social security specialist) informed.
[2019-12-14] MEDS: NITROGLYCERIN 1 INCH (GM) OINT. TP SCH (11:48)
[2019-12-14] MEDS: BALSAM PERU/CASTOR OIL 60 GM OINT...G. TP SCH (11:49)
--- NOTE | 2019-12-14 12:07 | NUR ---
Transitions Manager Rn: met with family LIGHTNING ROD ERECTOR met with family of pt. They are preparing for a terminal extubation for today. The family was waiting outside of the ICU waiting area. Present was pts. , Oneida and two of his three daughters. They were calm, somber, but participated in these brief discussion. When asked if a trust advisor could be called on behalf of Mr. Guzmán, , Oneida stated they had someone already come to see pt. bedside. LIGHTNING ROD ERECTOR shared with and went over the resources, asked if they had any questions. They did not nor did they have any more needs. They thanked the LIGHTNING ROD ERECTOR who will remain available as needed. Addendum: 12/14/19 at 1510 by Marlene Leal LCSW KEYUR met with pt's in ICU. Pt's states that she needs a bit more time to make arrangements for cremation. KEYUR provided pt's with phone number for Social Service Department and [employer]. KEYUR encouraged pt's to contact [employer] as soon as arrangements are made. KEYUR updated ICU nurse. KEYUR provided emotional support to pt's and family. ADMINISTRATION ASSISTANT will remain available for support and will follow up as needed.
--- NOTE | 2019-12-14 13:45 | NUR ---
PATIENT BECOME ASYSTOLE 1338.NO REACTIVE TO LIGHT. NO PULSE. NO RESP.NO BP. MD CELESTE PRONOUNCED PATIENT AT 1345.
--- NOTE | 2019-12-14 14:30 | NUR ---
[facility] CALLED, #[phone] [employer] CALLED - DENIED/PT IS NOT A [employer] CASE. ATTENDING MD's NOTIFIED OF PT . RELEASE OF REMAINS SIGNED BY .
--- NOTE | 2019-12-14 15:56 | NUR ---
POST MORTEM CARE DONE. TOE NAME AND BAG ATTACHMENT PLACED. PATIENT HAS NO BELONGINGS.
--- NOTE | 2019-12-14 17:00 | NUR ---
PLACED PATIENT BODY @ BODY HOLD AREA.
--- NOTE | 2019-12-15 10:41 | NUR ---
Social Service Note: SEPARATING MACHINE OPERATOR placed call to pt's -Oneida ([phone]); she is working on identifying a mortuary/cremation society. SEPARATING MACHINE OPERATOR offered to assist as pt's needs. Oneida states that she will call SEPARATING MACHINE OPERATOR back in a few hours with information to arrange picker and packer.
--- NOTE | 2019-12-15 12:34 | NUR ---
Social Service Note: CAKE PRESS OPERATOR HELPER received call from pt's ; she has made arrangements with [employer] ([phone]) CAKE PRESS OPERATOR HELPER will forward the information to the dry house tender to arrange continuous pickling line pickler helper. CAKE PRESS OPERATOR HELPER will also be mailing bereavement resources to pt's ([address], [place] [address]).
== END 2019-12-14 13:45 | disposition expired | DRG 870 ==
LOC: SED 04:54 → SIC 07:50 → EEVIPCON 07:50 → SIC 08:16
PROVIDERS: ADMIT General Practice; ATTEND General Practice
PROC: 5A1955Z Respiratory Ventilation, Greater than 96 Consecutive Hours (ICD-10-PCS; principal; 2019-12-01)
PROC: 0BH17EZ Insertion of Endotracheal Airway into Trachea, Via Natural or Artificial Opening (ICD-10-PCS; 2019-12-01)
PROC: 06HY33Z Insertion of Infusion Device into Lower Vein, Percutaneous Approach (ICD-10-PCS; 2019-12-01)
DX: A41.9 Sepsis, unspecified organism (principal); R65.21 Severe sepsis with septic shock; E43 Unspecified severe protein-calorie malnutrition; J15.9 Unspecified bacterial pneumonia; J96.01 Acute respiratory failure with hypoxia; J96.02 Acute respiratory failure with hypercapnia; N17.0 Acute kidney failure with tubular necrosis; N39.0 Urinary tract infection, site not specified; D61.818 Other pancytopenia; E87.2 Acidosis; J44.0 Chronic obstructive pulmonary disease with (acute) lower respiratory infection; Z99.11 Dependence on respirator [ventilator] status; E87.1 Hypo-osmolality and hyponatremia; Z66 Do not resuscitate; R57.1 Hypovolemic shock; E83.51 Hypocalcemia; F41.9 Anxiety disorder, unspecified; K21.9 Gastro-esophageal reflux disease without esophagitis; Z20.828 Contact with and (suspected) exposure to other viral communicable diseases; I27.20 Pulmonary hypertension, unspecified; K82.8 Other specified diseases of gallbladder; Y95 Nosocomial condition; E88.09 Other disorders of plasma-protein metabolism, not elsewhere classified; E87.8 Other disorders of electrolyte and fluid balance, not elsewhere classified; E87.6 Hypokalemia; L89.159 Pressure ulcer of sacral region, unspecified stage; R62.7 Adult failure to thrive; I46.9 Cardiac arrest, cause unspecified; R58 Hemorrhage, not elsewhere classified; T14.8XXA Other injury of unspecified body region, initial encounter; X58.XXXA Exposure to other specified factors, initial encounter; Z68.24 Body mass index [BMI] 24.0-24.9, adult; Z85.72 Personal history of non-Hodgkin lymphomas; Z79.899 Other long term (current) drug therapy; Y93.89 Activity, other specified; Y92.89 Other specified places as the place of occurrence of the external cause; Y99.8 Other external cause status
CPT/HCPCS: 36415; 36600; 71045; 71250-TC; 74018; 76700-TC; 78226; 80048; 80053; 80202-TC; 81000-TC; 82040-TC; 82533; 82550-TC; 82728; 82803-TC; 83036; 83605; 83615-TC; 83735-TC; 83880; 84484; 85007; 85025; 85027; 85379; 85384-TC; 85610-TC; 85651-TC; 85730-TC; 86140; 86710; 87040-TC; 87045-TC; 87081; 87086; 87230-TC; 93005; 93306; 93970; 94002; 94003; 94640; 96360; 99291; A9537; J0330; J0456; J1447; J1644; J1650; J1720; J1940; J2060; J2185; J2248; J2270; J2370; J2543; J2704; J3370; J3480; J3490; J7030; J7040; J7050; J7060; P9041; P9046; Q9967; U0003-CS